=== PATIENT | male | born 1940 | race Caucasian/White ===

== ENCOUNTER 2016-07-04 17:24 | Emergency (ER) | payer MEDICARE, OTHER ==
[~2016-07-04] VITALS: Ht 180.3 cm; Wt 73.0 kg
[~2016-07-04 17:24] MED LIST: ASPI-556 PO; DOXA2TAB PO; LEVO88TA4 PO; SIMV-259 PO; TAMS0.4C32 PO; TERB250 PO
[2016-07-04 20:41] LABS: ANION GAP 7 mmol/L (8-16); CARBON DIOXIDE 29 mmol/L (22-29); CHLORIDE 102 mmol/L (98-107); CREATININE 0.93 mg/dL (0.60-1.30); GLOMERULAR FILTR. RATE CALC > 60 mL/min (>60); POTASSIUM 4.2 mmol/L (3.5-5.1); SODIUM SERUM 138 mmol/L (136-145); UREA NITROGEN, BLOOD 23 mg/dL (7-18)
[2016-07-04 20:48] LABS: ALANINE AMINOTRANSFERASE 18 U/L (12-78); ASPARTATE AMINOTRANSFERASE 15 U/L (15-37); BILIRUBIN,TOTAL 0.5 mg/dL (0.1-1.0); TOTAL PROTEIN, SERUM 7.2 g/dL (6.4-8.2)
[2016-07-04 20:51] LABS: BASOPHILS # (AUTO) 0.02 K/uL (0.00-0.20); BASOPHILS % (AUTO) 0.2 % (0.0-2.0); EOSINOPHILS # (AUTO) 0.01 K/uL (0.00-0.70); EOSINOPHILS % (AUTO) 0.11 % (1.0-6.0); HEMATOCRIT 34.9 % (41-53); HEMOGLOBIN 11.7 g/dL (13.5-17.5); MEAN CORPUSCULAR HEMOGLOBIN 30.2 pg (26.0-34.0); MEAN CORPUSCULAR HGB CONC 33.4 G/dL (31.0-37.0); MEAN CORPUSCULAR VOLUME 91 fL (80-100); MONOCYTES # (AUTO) 0.7 K/uL (0.1-1.0); NEUTROPHILS # (AUTO) 7.4 K/uL (1.8-7.7); NEUTROPHILS % (AUTO) 80.7 % (40.0-70.0); PLATELET COUNT (AUTO) 220 K/uL (150-450); RED BLOOD CELL COUNT(AUTO) 3.86 MIL/uL (4.50-5.90); RED CELL DISTRIBUTION WIDTH 15.1 % (11.5-14.5); WHITE BLOOD COUNT (AUTO) 9.1 K/uL (4.5-11.0)
[2016-07-04] MEDS ORDERED: SODIUM CHLORIDE 0.9% 1,000 ML IV ONE (22:00)
[2016-07-04 22:16] LABS: APPEARANCE,URINE CLEAR (CLEAR); GLUCOSE, URINE (UA) NEGATIVE (NEGATIVE); KETONES,URINE TRACE mg/dL (NEGATIVE); LEUKOCYTE ESTERASE ,URINE NEGATIVE (NEGATIVE); OCCULT BLOOD,URINE MODERATE (NEGATIVE); PROTEIN,URINE POS 1+ (NEGATIVE)
[2016-07-04 22:20] LABS: ADD UA MICROSCOPIC YES
[2016-07-04 22:21] LABS: RBC,URINE 26-50 /HPF (0-2); SQUAMOUS EPITHELIAL CELL,UR Rare /LPF (None Seen)
[2016-07-04] MEDS ORDERED: LEVOFLOXACIN 250 MG TABLET PO ONE (23:00)
[2016-07-05] MEDS ORDERED: IOVERSOL 350 MG/ML 100 ML VIAL ONE (00:34)
[2016-07-05 02:33] VITALS: BP 122/70
== END 2016-07-05 02:35 | disposition home or self-care (01) ==
LOC: EMS 17:32
DX: J18.9 Pneumonia, unspecified organism (principal); E78.00 Pure hypercholesterolemia, unspecified; Z79.82 Long term (current) use of aspirin
CPT/HCPCS: 36415; 71010; 71275; 80053; 81001; 83605; 84443; 84484; 85025; 85379; 93005; 96360; 99285; J7030; Q9967

== ENCOUNTER → 2016-07-14 | Outpatient (CLI) | payer MEDICARE, OTHER ==
[~2016-07-14] MED LIST changes: -SIMV-259 PO; +SIMV10 PO
== END | disposition home or self-care (01) ==
LOC: RADPV 07:46
PROVIDERS: ATTEND Legal Medicine
DX: J18.9 Pneumonia, unspecified organism (principal); J98.11 Atelectasis; I70.0 Atherosclerosis of aorta; M47.814 Spondylosis without myelopathy or radiculopathy, thoracic region
CPT/HCPCS: 71020

== ENCOUNTER → 2016-07-28 | Outpatient (CLI) | payer MEDICARE, OTHER | END | disposition home or self-care (01) | LOC: RADPV 07:29 | PROVIDERS: ATTEND Legal Medicine | DX: J18.8 Other pneumonia, unspecified organism (principal); R91.8 Other nonspecific abnormal finding of lung field; J98.11 Atelectasis; I70.0 Atherosclerosis of aorta | CPT/HCPCS: 71020 ==

== ENCOUNTER → 2016-08-02 | Outpatient (CLI) | payer MEDICARE, OTHER ==
[~2016-08-02] MED LIST changes: +SIMV-259 PO; -SIMV10 PO
== END | disposition home or self-care (01) ==
LOC: RADMN 09:17
PROVIDERS: ATTEND Legal Medicine
DX: J18.9 Pneumonia, unspecified organism (principal); I31.3 Pericardial effusion (noninflammatory); I70.0 Atherosclerosis of aorta; I25.10 Atherosclerotic heart disease of native coronary artery without angina pectoris; M47.814 Spondylosis without myelopathy or radiculopathy, thoracic region
CPT/HCPCS: 71250

== ENCOUNTER 2016-12-02 06:09 | Emergency (ER) | payer MEDICARE, OTHER ==
[~2016-12-02] VITALS: Ht 180.3 cm; Wt 72.7 kg
[~2016-12-02 06:09] MED LIST changes: +AZIT250T6 PO
[2016-12-02] MEDS ORDERED: FLAX100020 PO (06:17)
[2016-12-02] MEDS ORDERED: UBID100C10 PO (06:17)
[2016-12-02] MEDS ORDERED: CETI-290 PO (06:17)
[2016-12-02] MEDS ORDERED: MULT1CAP32 PO (06:17)
[2016-12-02] MEDS ORDERED: NIAC500T7 PO (06:17)
[2016-12-02] MEDS ORDERED: LUTE20CA PO (06:17)
[2016-12-02] MEDS ORDERED: ASPI-556 PO (06:17)
[2016-12-02 08:20] VITALS: BP 126/71
== END 2016-12-02 08:22 | disposition home or self-care (01) ==
LOC: EMS 06:11
DX: S83.91XA Sprain of unspecified site of right knee, initial encounter (principal); E03.9 Hypothyroidism, unspecified; I10 Essential (primary) hypertension; N40.0 Benign prostatic hyperplasia without lower urinary tract symptoms; E78.00 Pure hypercholesterolemia, unspecified; Z79.82 Long term (current) use of aspirin; Z85.89 Personal history of malignant neoplasm of other organs and systems; Z87.891 Personal history of nicotine dependence; X58.XXXA Exposure to other specified factors, initial encounter; Y93.39 Activity, other involving climbing, rappelling and jumping off; Y92.89 Other specified places as the place of occurrence of the external cause; Y99.9 Unspecified external cause status
CPT/HCPCS: 99284

== ENCOUNTER → 2016-12-14 | Outpatient (CLI) | payer MEDICARE, OTHER ==
[~2016-12-14] MED LIST changes: -AZIT250T6 PO; +CETI-290 PO; +FLAX100020 PO; +LUTE20CA PO; +MULT1CAP32 PO; +NIAC500T7 PO; +UBID100C10 PO
== END | disposition home or self-care (01) ==
LOC: RADPV 10:52
PROVIDERS: ATTEND Legal Medicine
DX: J98.11 Atelectasis (principal); R91.8 Other nonspecific abnormal finding of lung field; I70.0 Atherosclerosis of aorta; M47.819 Spondylosis without myelopathy or radiculopathy, site unspecified
CPT/HCPCS: 71020

== ENCOUNTER → 2017-02-07 | Outpatient (CLI) | payer MEDICARE, OTHER | END | disposition home or self-care (01) | LOC: RADPV 07:45 | PROVIDERS: ATTEND Legal Medicine | DX: J44.9 Chronic obstructive pulmonary disease, unspecified (principal); I70.0 Atherosclerosis of aorta | CPT/HCPCS: 71020 ==

== ENCOUNTER → 2017-04-06 | Outpatient (CLI) | payer MEDICARE, OTHER | END | disposition home or self-care (01) | LOC: RADPV 07:42 | PROVIDERS: ATTEND Legal Medicine | DX: J44.9 Chronic obstructive pulmonary disease, unspecified (principal) | CPT/HCPCS: 71046 ==

== ENCOUNTER 2018-11-14 07:52 | Emergency (ER) | payer MEDICARE, OTHER ==
[~2018-11-14] VITALS: Ht 182.9 cm; Wt 70.5 kg
[~2018-11-14 07:52] MED LIST changes: +BETA1TAB20 PO; -CETI-290 PO; -LUTE20CA PO; -MULT1CAP32 PO; +MULT1TAB70 PO; +MV-M1TAB38 PO; -TERB250 PO
[2018-11-14] MEDS ORDERED: LIDOCAINE 1% 10 ML VIAL INJ ONE (08:45)
[2018-11-14] MEDS ORDERED: SODIUM CHLORIDE 0.9% 250 ML IRRIG SOLUTION BOTTLE IRRIG ONE (08:45)
[2018-11-14 10:34] LABS: BASOPHILS % (AUTO) 0.3 % (0.0-2.0); EOSINOPHILS % (AUTO) 0.1 % (1.0-6.0); HEMATOCRIT 34.2 % (41-53); LYMPHOCYTES # (AUTO) 0.6 K/uL (1.0-4.8); LYMPHOCYTES % (AUTO) 8.8 % (22.0-44.0); MEAN CORPUSCULAR HEMOGLOBIN 28.5 pg (26.0-34.0); MEAN CORPUSCULAR HGB CONC 32.2 G/dL (31.0-37.0); MEAN CORPUSCULAR VOLUME 88 fL (80-100); MONOCYTES # (AUTO) 0.5 K/uL (0.1-1.0); MONOCYTES % (AUTO) 6.8 % (2.0-9.0); NEUTROPHILS # (AUTO) 5.9 K/uL (1.8-7.7); PLATELET COUNT (AUTO) 234 K/uL (150-450); RED BLOOD CELL COUNT(AUTO) 3.86 MIL/uL (4.50-5.90); RED CELL DISTRIBUTION WIDTH 16.2 % (11.5-14.5)
[2018-11-14 10:46] LABS: ANION GAP 8 mmol/L (8-16); CALCIUM, TOTAL 9.6 mg/dL (8.8-10.5); CARBON DIOXIDE 28 mmol/L (22-29); CHLORIDE 103 mmol/L (98-107); CREATININE 0.78 mg/dL (0.60-1.30); GLUCOSE,RANDOM 121 mg/dL (70-110); INR 1.1 (0.9-1.1); POTASSIUM 4.1 mmol/L (3.5-5.1); PROTHROMBIN TIME 11.3 SEC (9.4-11.6); SODIUM SERUM 139 mmol/L (136-145); UREA NITROGEN, BLOOD 19 mg/dL (7-18)
[2018-11-14 10:47] LABS: GLOMERULAR FILTR. RATE CALC > 60 mL/min (>60)
[2018-11-14 10:52] LABS: ALANINE AMINOTRANSFERASE 9 U/L (12-78); ALBUMIN 3.2 g/dL (3.4-5.0); ALKALINE PHOSPHATASE 79 U/L (46-116); ASPARTATE AMINOTRANSFERASE 16 U/L (15-37); BILIRUBIN,TOTAL 0.6 mg/dL (0.1-1.0); TOTAL PROTEIN, SERUM 7.1 g/dL (6.4-8.2)
[2018-11-14 10:56] LABS: B-TYPE NATRIURETIC PEPTIDE 195 pg/mL (0-100)
[2018-11-14] MEDS ORDERED: CeFAZolin 1 GM/DEXTROSE 50 ML IV ONE (11:30)
[2018-11-14 11:47] VITALS: BP 122/73
== END 2018-11-14 12:26 | disposition home or self-care (01) ==
LOC: EMS 07:52
DX: S02.2XXA Fracture of nasal bones, initial encounter for closed fracture (principal); S01.81XA Laceration without foreign body of other part of head, initial encounter; E78.00 Pure hypercholesterolemia, unspecified; E03.9 Hypothyroidism, unspecified; Z87.891 Personal history of nicotine dependence; Z79.82 Long term (current) use of aspirin; W01.0XXA Fall on same level from slipping, tripping and stumbling without subsequent striking against object, initial encounter; Y93.01 Activity, walking, marching and hiking; Y92.89 Other specified places as the place of occurrence of the external cause; Y99.8 Other external cause status
CPT/HCPCS: 12011; 36415; 70450; 70486; 80053; 83880; 84484; 85025; 85610; 85730; 93005; 96365; 99285; J0690; J3490

== ENCOUNTER 2019-01-09 15:13 | Inpatient (IN) | payer MEDICARE, OTHER ==
[~2019-01-09] VITALS: Ht 180.3 cm; Wt 63.5 kg
[~2019-01-09 15:13] MED LIST changes: +TAMS-13 PO; -TAMS0.4C32 PO
[2019-01-09] MEDS ORDERED: MELATONIN 5 MG TABLET JT PRN (16:45)
[2019-01-09] MEDS ORDERED: ACETAMINOPHEN 650 MG/20.3 ML SOLUTION UDCUP JT PRN (16:45)
[2019-01-09 16:47] VITALS: BP 122/71
[2019-01-09 20:26] LABS: GLUCOMETER DEV NAME(LOC) 2WR.2; GLUCOSE,POINT OF CARE 110 MG/DL (70-110)
[2019-01-09] MEDS: ALBUTEROL SULFATE 2.5 MG/0.5 ML NEB SOLUTION NEB SCH (20:56)
[2019-01-09] MEDS: IPRATROPIUM BROMIDE 0.5 MG/2.5 ML NEB SOLUTION NEB SCH (20:56)
[2019-01-09] MEDS ORDERED: BUDESONIDE 0.25 MG/2 ML NEB SOLUTION NEB SCH (21:00)
[2019-01-09] MEDS: BUDESONIDE 0.5 MG/2 ML NEB SOLUTION NEB SCH (21:00)
[2019-01-09 21:43] VITALS: BP 122/71
[2019-01-09] MEDS: MIRTAZAPINE 15 MG TABLET JT SCH (22:12)
[2019-01-09] MEDS: TAMSULOSIN HCL 0.4 MG CAPSULE JT SCH (22:12)
[2019-01-09] MEDS: ATORVASTATIN CALCIUM 10 MG TABLET JT SCH (22:12)
[2019-01-10 01:13] VITALS: BP 90/58
[2019-01-10 01:30] LABS: GLUCOMETER DEV NAME(LOC) 2WR.2; GLUCOSE,POINT OF CARE 159 MG/DL (70-110)
[2019-01-10] MEDS: LEVOTHYROXINE SODIUM 88 MCG TABLET JT SCH (06:07)
[2019-01-10 06:12] LABS: BASOPHILS % (AUTO) 1.1 % (0.0-2.0); HEMATOCRIT 32.6 % (41-53); HEMOGLOBIN 10.5 g/dL (13.5-17.5); LYMPHOCYTES # (AUTO) 0.8 K/uL (1.0-4.8); LYMPHOCYTES % (AUTO) 11.2 % (22.0-44.0); MEAN CORPUSCULAR HEMOGLOBIN 27.9 pg (26.0-34.0); MEAN CORPUSCULAR HGB CONC 32.3 G/dL (31.0-37.0); MEAN CORPUSCULAR VOLUME 86 fL (80-100); MONOCYTES # (AUTO) 0.7 K/uL (0.1-1.0); MONOCYTES % (AUTO) 10.2 % (2.0-9.0); NEUTROPHILS # (AUTO) 4.9 K/uL (1.8-7.7); NEUTROPHILS % (AUTO) 71.5 % (40.0-70.0); PLATELET COUNT (AUTO) 240 K/uL (150-450); RED BLOOD CELL COUNT(AUTO) 3.78 MIL/uL (4.50-5.90); RED CELL DISTRIBUTION WIDTH 18.7 % (11.5-14.5)
[2019-01-10 06:27] LABS: GLUCOMETER DEV NAME(LOC) 2WR.2; GLUCOSE,POINT OF CARE 125 MG/DL (70-110)
[2019-01-10 06:28] LABS: ALANINE AMINOTRANSFERASE 83 U/L (12-78); ALBUMIN 2.3 g/dL (3.4-5.0); ALKALINE PHOSPHATASE 97 U/L (46-116); ANION GAP 4 mmol/L (8-16); ASPARTATE AMINOTRANSFERASE 35 U/L (15-37); BILIRUBIN,TOTAL 0.3 mg/dL (0.1-1.0); CALCIUM, TOTAL 8.5 mg/dL (8.8-10.5); CARBON DIOXIDE 32 mmol/L (22-29); CHLORIDE 104 mmol/L (98-107); CREATININE 0.78 mg/dL (0.60-1.30); GLOMERULAR FILTR. RATE CALC > 60 mL/min (>60); GLUCOSE,RANDOM 134 mg/dL (70-110); POTASSIUM 4.5 mmol/L (3.5-5.1); SODIUM SERUM 140 mmol/L (136-145); TOTAL PROTEIN, SERUM 6.1 g/dL (6.4-8.2); UREA NITROGEN, BLOOD 32 mg/dL (7-18)
[2019-01-10] MEDS: ASPIRIN 81 MG CHEWABLE TABLET JT SCH (08:45)
[2019-01-10] MEDS: LANSOPRAZOLE 30 MG SOLUBLE TABLET JT SCH (08:45)
[2019-01-10 09:26] VITALS: BP 99/55
[2019-01-10] MEDS: IPRATROPIUM BROMIDE 0.5 MG/2.5 ML NEB SOLUTION NEB SCH ×4 (10:42→20:11)
[2019-01-10] MEDS: BUDESONIDE 0.5 MG/2 ML NEB SOLUTION NEB SCH ×2 (10:42→20:11)
[2019-01-10] MEDS: ALBUTEROL SULFATE 2.5 MG/0.5 ML NEB SOLUTION NEB SCH ×4 (10:42→20:11)
[2019-01-10 12:46] LABS: GLUCOMETER DEV NAME(LOC) 2WR.2; GLUCOSE,POINT OF CARE 131 MG/DL (70-110)
[2019-01-10 16:36] VITALS: BP 144/85
[2019-01-10] MEDS: ATORVASTATIN CALCIUM 10 MG TABLET JT SCH (20:24)
[2019-01-10] MEDS: MIRTAZAPINE 15 MG TABLET JT SCH (20:24)
[2019-01-10] MEDS: TAMSULOSIN HCL 0.4 MG CAPSULE JT SCH (20:24)
[2019-01-11] VITALS (7 sets, daily range): BP systolic 77–118; BP diastolic 37–70
[2019-01-11 00:31] LABS: GLUCOMETER DEV NAME(LOC) 2WR.1B; GLUCOSE,POINT OF CARE 151 MG/DL (70-110)
[2019-01-11 05:32] LABS: GLUCOMETER DEV NAME(LOC) 2WR.2; GLUCOSE,POINT OF CARE 156 MG/DL (70-110)
[2019-01-11] MEDS: LEVOTHYROXINE SODIUM 88 MCG TABLET JT SCH (06:10)
[2019-01-11 06:31] LABS: GLUCOMETER DEV NAME(LOC) 2WR.1B; GLUCOSE,POINT OF CARE 143 MG/DL (70-110)
[2019-01-11] MEDS: LANSOPRAZOLE 30 MG SOLUBLE TABLET JT SCH (09:21)
[2019-01-11] MEDS: ASPIRIN 81 MG CHEWABLE TABLET JT SCH (09:29)
[2019-01-11] MEDS: BUDESONIDE 0.5 MG/2 ML NEB SOLUTION NEB SCH ×2 (09:31→20:20)
[2019-01-11] MEDS: ALBUTEROL SULFATE 2.5 MG/0.5 ML NEB SOLUTION NEB SCH ×4 (09:31→20:20)
[2019-01-11] MEDS: IPRATROPIUM BROMIDE 0.5 MG/2.5 ML NEB SOLUTION NEB SCH ×4 (09:32→20:20)
[2019-01-11] MEDS ORDERED: DEXTROSE 50%-WATER 25 GM/50 ML SYRINGE IVP PRN (10:15)
[2019-01-11 18:26] LABS: GLUCOMETER DEV NAME(LOC) 2WR.2; GLUCOSE,POINT OF CARE 148 MG/DL (70-110)
[2019-01-11] MEDS: INSULIN REGULAR, HUMAN 100 UNITS/ML SQ PRN (19:24)
[2019-01-11] MEDS: MIRTAZAPINE 15 MG TABLET JT SCH (20:32)
[2019-01-11] MEDS: ATORVASTATIN CALCIUM 10 MG TABLET JT SCH (20:32)
[2019-01-11 21:26] LABS: GLUCOMETER DEV NAME(LOC) 2WR.2; GLUCOSE,POINT OF CARE 118 MG/DL (70-110)
[2019-01-12] VITALS (7 sets, daily range): BP systolic 79–102; BP diastolic 42–58
[2019-01-12] MEDS: LEVOTHYROXINE SODIUM 88 MCG TABLET JT SCH (05:34)
[2019-01-12] MEDS: INSULIN REGULAR, HUMAN 100 UNITS/ML SQ PRN (05:51)
[2019-01-12 06:07] LABS: GLUCOMETER DEV NAME(LOC) 2WR.1B; GLUCOSE,POINT OF CARE 127 MG/DL (70-110)
[2019-01-12 06:07] LABS: GLUCOMETER DEV NAME(LOC) 2WR.2; GLUCOSE,POINT OF CARE 142 MG/DL (70-110)
[2019-01-12] MEDS: LANSOPRAZOLE 30 MG SOLUBLE TABLET JT SCH (08:02)
[2019-01-12] MEDS: ASPIRIN 81 MG CHEWABLE TABLET JT SCH (08:02)
[2019-01-12] MEDS: ALBUTEROL SULFATE 2.5 MG/0.5 ML NEB SOLUTION NEB SCH ×4 (09:30→21:16)
[2019-01-12] MEDS: IPRATROPIUM BROMIDE 0.5 MG/2.5 ML NEB SOLUTION NEB SCH ×4 (09:30→21:17)
[2019-01-12] MEDS: BUDESONIDE 0.5 MG/2 ML NEB SOLUTION NEB SCH ×2 (09:30→21:17)
[2019-01-12 12:36] LABS: GLUCOMETER DEV NAME(LOC) 2WR.2; GLUCOSE,POINT OF CARE 95 MG/DL (70-110)
[2019-01-12] MEDS ORDERED: MAGNESIUM HYDROXIDE SUSPENSION 30 ML UDCUP PO PRN (14:00)
[2019-01-12 17:26] LABS: GLUCOMETER DEV NAME(LOC) 2WR.2; GLUCOSE,POINT OF CARE 125 MG/DL (70-110)
[2019-01-12] MEDS: MethylPREDNISolone SOD SUCC 40 MG/ML VIAL IVP SCH (19:29)
[2019-01-12] MEDS: OXYGEN THERAPY IH SCH (21:18)
[2019-01-12] MEDS: SENNA 187 MG TABLET PO SCH (21:28)
[2019-01-12] MEDS: DOCUSATE SODIUM 250 MG CAPSULE PO SCH (21:28)
[2019-01-12] MEDS: ATORVASTATIN CALCIUM 10 MG TABLET JT SCH (21:30)
[2019-01-12] MEDS: MIRTAZAPINE 15 MG TABLET JT SCH (21:30)
[2019-01-13] VITALS: BP 116/70
[2019-01-13] MEDS: 0.9% SODIUM CHLORIDE 10 ML SYRINGE IVP SCH ×4 (00:08→23:42)
[2019-01-13] MEDS: MethylPREDNISolone SOD SUCC 40 MG/ML VIAL IVP SCH ×4 (00:08→23:43)
[2019-01-13] MEDS: LEVOTHYROXINE SODIUM 88 MCG TABLET JT SCH (05:38)
[2019-01-13] MEDS: INSULIN REGULAR, HUMAN 100 UNITS/ML SQ PRN ×2 (05:56→18:04)
[2019-01-13 05:57] LABS: GLUCOMETER DEV NAME(LOC) 2WR.2; GLUCOSE,POINT OF CARE 195 MG/DL (70-110)
[2019-01-13 07:05] VITALS: BP 106/63
[2019-01-13] MEDS: OXYGEN THERAPY IH SCH ×2 (07:56→20:00)
[2019-01-13] MEDS: LANSOPRAZOLE 30 MG SOLUBLE TABLET JT SCH (07:56)
[2019-01-13] MEDS: ASPIRIN 81 MG CHEWABLE TABLET JT SCH (07:57)
[2019-01-13] MEDS: DOCUSATE SODIUM 250 MG CAPSULE PO SCH ×2 (07:57→20:44)
[2019-01-13] MEDS: IPRATROPIUM BROMIDE 0.5 MG/2.5 ML NEB SOLUTION NEB SCH ×4 (09:14→20:01)
[2019-01-13] MEDS: ALBUTEROL SULFATE 2.5 MG/0.5 ML NEB SOLUTION NEB SCH ×4 (09:14→20:00)
[2019-01-13] MEDS: BUDESONIDE 0.5 MG/2 ML NEB SOLUTION NEB SCH ×2 (09:14→20:00)
[2019-01-13 15:55] VITALS: BP 88/55
[2019-01-13 17:01] VITALS: BP 81/46
[2019-01-13 17:52] LABS: GLUCOMETER DEV NAME(LOC) 2WR.2; GLUCOSE,POINT OF CARE 176 MG/DL (70-110)
[2019-01-13 20:42] VITALS: BP 91/52
[2019-01-13] MEDS: MIRTAZAPINE 15 MG TABLET JT SCH (20:44)
[2019-01-13] MEDS: SENNA 187 MG TABLET PO SCH (20:44)
[2019-01-13] MEDS: ATORVASTATIN CALCIUM 10 MG TABLET JT SCH (20:44)
[2019-01-14] VITALS: BP 99/54
[2019-01-14] MEDS: LEVOTHYROXINE SODIUM 88 MCG TABLET JT SCH (05:34)
[2019-01-14] MEDS: INSULIN REGULAR, HUMAN 100 UNITS/ML SQ PRN ×2 (05:48→18:07)
[2019-01-14 07:30] VITALS: BP 105/58
[2019-01-14] MEDS: ASPIRIN 81 MG CHEWABLE TABLET JT SCH (08:06)
[2019-01-14] MEDS: LANSOPRAZOLE 30 MG SOLUBLE TABLET JT SCH (08:06)
[2019-01-14] MEDS: DOCUSATE SODIUM 250 MG CAPSULE PO SCH (08:06)
[2019-01-14] MEDS: OXYGEN THERAPY IH SCH (08:07)
[2019-01-14] MEDS: 0.9% SODIUM CHLORIDE 10 ML SYRINGE IVP SCH ×2 (08:07→16:47)
[2019-01-14] MEDS: MethylPREDNISolone SOD SUCC 40 MG/ML VIAL IVP SCH ×2 (08:07→16:47)
[2019-01-14] MEDS: BUDESONIDE 0.5 MG/2 ML NEB SOLUTION NEB SCH (09:00)
[2019-01-14] MEDS: ALBUTEROL SULFATE 2.5 MG/0.5 ML NEB SOLUTION NEB SCH ×3 (09:00→16:03)
[2019-01-14] MEDS: IPRATROPIUM BROMIDE 0.5 MG/2.5 ML NEB SOLUTION NEB SCH ×3 (09:00→16:03)
[2019-01-14] MEDS ORDERED: ALBUMIN HUMAN 25%-25GM/100ML 100 ML IV SCH (16:00)
[2019-01-14] MEDS ORDERED: MIDODRINE HCL 2.5 MG TABLET PO SCH ×2 (17:00→21:00)
[2019-01-14] MEDS ORDERED: SODIUM CHLORIDE 0.9% 250 ML IV ONE (17:07)
[2019-01-14 18:07] LABS: GLUCOMETER DEV NAME(LOC) 2WR.1B; GLUCOSE,POINT OF CARE 179 MG/DL (70-110)
[2019-01-14 18:16] LABS: GLUCOMETER DEV NAME(LOC) 2WR.2; GLUCOSE,POINT OF CARE 164 MG/DL (70-110)
[2019-01-14] MEDS ORDERED: MIRTAZAPINE 15 MG TABLET JT SCH (21:00)
[2019-01-15 14:07] LABS: GLUCOMETER DEV NAME(LOC) 5N.2; GLUCOSE,POINT OF CARE 168 MG/DL (70-110)
[2019-01-15 14:07] LABS: GLUCOMETER DEV NAME(LOC) 5N.2; GLUCOSE,POINT OF CARE 172 MG/DL (70-110)
== END 2019-01-14 19:00 | disposition short-term general hospital (02) | DRG 193 ==
LOC: 2WR 15:30
PROVIDERS: ADMIT Physical Medicine & Rehabilitation; ATTEND Physical Medicine & Rehabilitation
DX: J18.9 Pneumonia, unspecified organism (principal); J96.01 Acute respiratory failure with hypoxia; J44.0 Chronic obstructive pulmonary disease with (acute) lower respiratory infection; J98.19 Other pulmonary collapse; I10 Essential (primary) hypertension; E78.5 Hyperlipidemia, unspecified; E03.9 Hypothyroidism, unspecified; F32.9 Major depressive disorder, single episode, unspecified; N40.0 Benign prostatic hyperplasia without lower urinary tract symptoms; F12.90 Cannabis use, unspecified, uncomplicated; R13.10 Dysphagia, unspecified; I48.91 Unspecified atrial fibrillation; R26.9 Unspecified abnormalities of gait and mobility; K59.00 Constipation, unspecified; G47.00 Insomnia, unspecified; I95.9 Hypotension, unspecified; Z87.891 Personal history of nicotine dependence; Z79.82 Long term (current) use of aspirin; Z79.899 Other long term (current) drug therapy; Z92.3 Personal history of irradiation
CPT/HCPCS: 71260; 74018; 87081; 93970; 94640; 94667; 97110; 97116; 97163; 97167; 97530; 97535; 99366; J2920; J7050; P9046

== ENCOUNTER 2019-01-14 19:10 | Inpatient (IN) | payer MEDICARE, OTHER ==
[~2019-01-14] VITALS: Ht 180.3 cm; Wt 60.9 kg
[2019-01-14 20:00] VITALS: BP 111/66
[2019-01-15 00:15] VITALS: BP 134/75
[2019-01-15] MEDS ORDERED: INFLUENZA VIRUS VACCINE QVS 2019-20 (3YR+)/PF 60 MCG/0.5 ML SYRINGE IM ONE (03:45)
[2019-01-15] MEDS ORDERED: PNEUMOCOCCAL VACCINE POLYVALENT 0.5 ML VIAL [PPSV23] IM ONE (03:45)
[2019-01-15 05:10] VITALS: BP 100/59
[2019-01-15] MEDS ORDERED: DEXTROSE 50%-WATER 25 GM/50 ML SYRINGE IVP PRN (07:00)
[2019-01-15 07:46] VITALS: BP 97/56
[2019-01-15] MEDS: DOCUSATE SODIUM 100 MG/10 ML LIQUID UDCUP JT SCH ×2 (08:20→21:48)
[2019-01-15] MEDS: ASPIRIN 81 MG CHEWABLE TABLET JT SCH (08:20)
[2019-01-15] MEDS: LANSOPRAZOLE 30 MG SOLUBLE TABLET JT SCH (08:21)
[2019-01-15] MEDS: MethylPREDNISolone SOD SUCC 40 MG/ML VIAL IVP SCH ×3 (08:21→23:46)
[2019-01-15] MEDS: 0.9% SODIUM CHLORIDE 10 ML SYRINGE IVP SCH ×3 (08:21→23:47)
[2019-01-15] MEDS: LEVOTHYROXINE SODIUM 88 MCG TABLET JT SCH (08:21)
[2019-01-15] MEDS: MIDODRINE HCL 2.5 MG TABLET JT SCH ×2 (08:21→21:48)
[2019-01-15] MEDS: IPRATROPIUM BROMIDE 0.5 MG/2.5 ML NEB SOLUTION NEB SCH ×4 (08:54→20:55)
[2019-01-15] MEDS: ALBUTEROL SULFATE 2.5 MG/0.5 ML NEB SOLUTION NEB PRN ×4 (08:54→20:55)
[2019-01-15] MEDS: BUDESONIDE 0.5 MG/2 ML NEB SOLUTION NEB SCH ×2 (08:54→20:55)
[2019-01-15] MEDS ORDERED: ACETAMINOPHEN 650 MG/20.3 ML SOLUTION UDCUP JT PRN (09:00)
[2019-01-15] MEDS ORDERED: MAGNESIUM HYDROXIDE SUSPENSION 30 ML UDCUP JT PRN (09:00)
[2019-01-15 11:14] VITALS: BP 106/57
[2019-01-15] MEDS: ALBUMIN HUMAN 25%-25GM/100ML 100 ML IV SCH ×2 (11:30→17:01)
[2019-01-15] MEDS: ACETYLCYSTEINE 10% 100 MG/ML 4 ML NEB SOLUTION NEB SCH ×3 (14:13→20:55)
[2019-01-15 15:30] VITALS: BP 99/54
[2019-01-15 20:12] VITALS: BP 105/59
[2019-01-15] MEDS ORDERED: SENNA 218 MG/5 ML SYRUP ORAL.SYG JT PRN (21:00)
[2019-01-15] MEDS ORDERED: MELATONIN 5 MG TABLET JT PRN (21:00)
[2019-01-15] MEDS: ATORVASTATIN CALCIUM 10 MG TABLET JT SCH (21:49)
[2019-01-15 23:33] LABS: GLUCOMETER DEV NAME(LOC) 5N.2; GLUCOSE,POINT OF CARE 159 MG/DL (70-110)
[2019-01-15] MEDS: MIRTAZAPINE 15 MG TABLET JT SCH (23:40)
[2019-01-16] VITALS (7 sets, daily range): BP systolic 112–135; BP diastolic 60–70
[2019-01-16] MEDS: ALBUMIN HUMAN 25%-25GM/100ML 100 ML IV SCH ×3 (00:13→16:42)
[2019-01-16] MEDS: LEVOTHYROXINE SODIUM 88 MCG TABLET JT SCH (05:30)
[2019-01-16] MEDS: INSULIN REGULAR, HUMAN 100 UNITS/ML SQ PRN ×2 (06:18→18:35)
[2019-01-16 07:01] LABS: EOSINOPHILS % (AUTO) 0 % (1.0-6.0); HEMATOCRIT 30.1 % (41-53); HEMOGLOBIN 10.1 g/dL (13.5-17.5); LYMPHOCYTES # (AUTO) 0.2 K/uL (1.0-4.8); LYMPHOCYTES % (AUTO) 3.2 % (22.0-44.0); MEAN CORPUSCULAR HEMOGLOBIN 29.1 pg (26.0-34.0); MEAN CORPUSCULAR HGB CONC 33.5 G/dL (31.0-37.0); MEAN CORPUSCULAR VOLUME 87 fL (80-100); MONOCYTES # (AUTO) 0.2 K/uL (0.1-1.0); MONOCYTES % (AUTO) 4.5 % (2.0-9.0); NEUTROPHILS # (AUTO) 4.8 K/uL (1.8-7.7); PLATELET COUNT (AUTO) 210 K/uL (150-450); RED BLOOD CELL COUNT(AUTO) 3.46 MIL/uL (4.50-5.90); RED CELL DISTRIBUTION WIDTH 19.1 % (11.5-14.5)
[2019-01-16 07:12] LABS: NEUTROPHILS % (AUTO) 92.3 % (40.0-70.0)
[2019-01-16 07:13] LABS: HEMOGLOBIN A1C 6.8 % (4.5-6.2)
[2019-01-16 07:17] LABS: B-TYPE NATRIURETIC PEPTIDE 272 pg/mL (0-100)
[2019-01-16 07:25] LABS: ANION GAP 4 mmol/L (8-16); CALCIUM, TOTAL 8.9 mg/dL (8.8-10.5); CARBON DIOXIDE 31 mmol/L (22-29); CHLORIDE 102 mmol/L (98-107); CHOL/HDL RATIO 2.3 (4.2-7.3); CHOLESTEROL 89 mg/dL (131-200); CREATINE KINASE, TOTAL ONLY 16 U/L (39-308); CREATININE 0.72 mg/dL (0.60-1.30); FREE T4 (FREE THYROXINE) 0.95 ng/dL (0.76-1.46); GLUCOSE,RANDOM 201 mg/dL (70-110); HDL CHOLESTEROL 39 mg/dL (40-60); LDL CHOL (CALC.) 44 mg/dL (0-130); POTASSIUM 4.2 mmol/L (3.5-5.1); SODIUM SERUM 137 mmol/L (136-145); THYROID STIMULATING HORMONE 0.73 uIU/mL (0.36-3.74); TRIGLYCERIDES 29 mg/dL (15-150); UREA NITROGEN, BLOOD 30 mg/dL (7-18)
[2019-01-16 07:27] LABS: GLOMERULAR FILTR. RATE CALC > 60 mL/min (>60)
[2019-01-16] MEDS: BUDESONIDE 0.5 MG/2 ML NEB SOLUTION NEB SCH ×2 (08:26→21:16)
[2019-01-16] MEDS: ALBUTEROL SULFATE 2.5 MG/0.5 ML NEB SOLUTION NEB PRN ×3 (08:26→16:44)
[2019-01-16] MEDS: ACETYLCYSTEINE 10% 100 MG/ML 4 ML NEB SOLUTION NEB SCH ×2 (08:27→13:38)
[2019-01-16] MEDS: IPRATROPIUM BROMIDE 0.5 MG/2.5 ML NEB SOLUTION NEB SCH ×4 (08:28→21:16)
[2019-01-16] MEDS: ASPIRIN 81 MG CHEWABLE TABLET JT SCH (09:33)
[2019-01-16] MEDS: MethylPREDNISolone SOD SUCC 40 MG/ML VIAL IVP SCH ×2 (09:33→16:42)
[2019-01-16] MEDS: LANSOPRAZOLE 30 MG SOLUBLE TABLET JT SCH (09:34)
[2019-01-16] MEDS: MIDODRINE HCL 2.5 MG TABLET JT SCH ×2 (09:34→21:21)
[2019-01-16] MEDS: DOCUSATE SODIUM 100 MG/10 ML LIQUID UDCUP JT SCH ×2 (09:34→21:21)
[2019-01-16] MEDS: 0.9% SODIUM CHLORIDE 10 ML SYRINGE IVP SCH ×2 (09:40→16:34)
[2019-01-16 19:06] LABS: GLUCOMETER DEV NAME(LOC) 5N.2; GLUCOSE,POINT OF CARE 197 MG/DL (70-110)
[2019-01-16] MEDS: MIRTAZAPINE 15 MG TABLET JT SCH (21:21)
[2019-01-16] MEDS: ATORVASTATIN CALCIUM 10 MG TABLET JT SCH (21:21)
[2019-01-17] MEDS ORDERED: SODIUM CHLORIDE 0.9% 100 ML ONE (00:26)
[2019-01-17] MEDS: ALBUMIN HUMAN 25%-25GM/100ML 100 ML IV SCH ×3 (00:54→16:38)
[2019-01-17] MEDS: MethylPREDNISolone SOD SUCC 40 MG/ML VIAL IVP SCH ×3 (00:54→16:37)
[2019-01-17] MEDS: 0.9% SODIUM CHLORIDE 10 ML SYRINGE IVP SCH ×3 (01:02→16:36)
[2019-01-17 04:45] VITALS: BP 130/64
[2019-01-17 06:05] LABS: GLUCOMETER DEV NAME(LOC) 5S.2A; GLUCOSE,POINT OF CARE 198 MG/DL (70-110)
[2019-01-17] MEDS: INSULIN REGULAR, HUMAN 100 UNITS/ML SQ PRN (06:56)
[2019-01-17 07:34] VITALS: BP 117/53
[2019-01-17] MEDS: IPRATROPIUM BROMIDE 0.5 MG/2.5 ML NEB SOLUTION NEB SCH ×4 (08:03→21:10)
[2019-01-17] MEDS: BUDESONIDE 0.5 MG/2 ML NEB SOLUTION NEB SCH ×2 (08:03→21:10)
[2019-01-17] MEDS: MIDODRINE HCL 2.5 MG TABLET JT SCH ×2 (08:54→20:53)
[2019-01-17] MEDS: LANSOPRAZOLE 30 MG SOLUBLE TABLET JT SCH (08:54)
[2019-01-17] MEDS: ASPIRIN 81 MG CHEWABLE TABLET JT SCH (08:55)
[2019-01-17] MEDS: DOCUSATE SODIUM 100 MG/10 ML LIQUID UDCUP JT SCH ×2 (08:55→20:54)
[2019-01-17 10:58] VITALS: BP 131/61
[2019-01-17] MEDS: LEVOTHYROXINE SODIUM 88 MCG TABLET JT SCH (12:14)
[2019-01-17 15:03] VITALS: BP 145/78
[2019-01-17 19:28] LABS: GLUCOMETER DEV NAME(LOC) 5N.1; GLUCOSE,POINT OF CARE 161 MG/DL (70-110)
[2019-01-17 19:34] VITALS: BP 133/69
[2019-01-17] MEDS: MIRTAZAPINE 15 MG TABLET JT SCH (20:53)
[2019-01-17] MEDS: ATORVASTATIN CALCIUM 10 MG TABLET JT SCH (20:53)
[2019-01-17] MEDS: ALBUTEROL SULFATE 2.5 MG/0.5 ML NEB SOLUTION NEB PRN (21:10)
[2019-01-17 23:05] LABS: GLUCOMETER DEV NAME(LOC) 5N.2; GLUCOSE,POINT OF CARE 164 MG/DL (70-110)
[2019-01-18] MEDS ORDERED: SODIUM CHLORIDE 0.9% 100 ML ONE (00:13)
[2019-01-18 00:14] VITALS: BP 125/65
[2019-01-18] MEDS: MethylPREDNISolone SOD SUCC 40 MG/ML VIAL IVP SCH ×2 (00:15→08:59)
[2019-01-18] MEDS: ALBUMIN HUMAN 25%-25GM/100ML 100 ML IV SCH ×2 (00:15→09:12)
[2019-01-18] MEDS: INSULIN REGULAR, HUMAN 100 UNITS/ML SQ PRN (06:02)
[2019-01-18] MEDS ORDERED: ASPI81TA39 JT (06:45)
[2019-01-18] MEDS ORDERED: ATOR10TA69 JT (06:46)
[2019-01-18] MEDS ORDERED: BUDE0.5A NEB (06:49)
[2019-01-18] MEDS ORDERED: DSSL JT (06:50)
[2019-01-18] MEDS ORDERED: IPRNEB NEB (06:52)
[2019-01-18] MEDS ORDERED: LANS15CA17 JT (06:54)
[2019-01-18] MEDS ORDERED: LEVO25TA9 JT (06:55)
[2019-01-18] MEDS ORDERED: MIDO2.5T JT (06:56)
[2019-01-18] MEDS ORDERED: MIRT15TA6 JT (06:57)
[2019-01-18] MEDS ORDERED: ACET-3207 JT (06:58)
[2019-01-18 07:44] VITALS: BP 117/69
[2019-01-18] MEDS: IPRATROPIUM BROMIDE 0.5 MG/2.5 ML NEB SOLUTION NEB SCH ×3 (08:48→16:00)
[2019-01-18] MEDS: ALBUTEROL SULFATE 2.5 MG/0.5 ML NEB SOLUTION NEB PRN ×2 (08:48→13:55)
[2019-01-18] MEDS: BUDESONIDE 0.5 MG/2 ML NEB SOLUTION NEB SCH (08:48)
[2019-01-18] MEDS: LANSOPRAZOLE 30 MG SOLUBLE TABLET JT SCH (08:59)
[2019-01-18] MEDS: MIDODRINE HCL 2.5 MG TABLET JT SCH (08:59)
[2019-01-18] MEDS: ASPIRIN 81 MG CHEWABLE TABLET JT SCH (08:59)
[2019-01-18] MEDS: DOCUSATE SODIUM 100 MG/10 ML LIQUID UDCUP JT SCH (09:00)
[2019-01-18] MEDS: 0.9% SODIUM CHLORIDE 10 ML SYRINGE IVP SCH (09:22)
[2019-01-18] MEDS: LEVOTHYROXINE SODIUM 88 MCG TABLET JT SCH (11:03)
[2019-01-18 11:34] VITALS: BP 130/68
[2019-01-18] MEDS ORDERED: MethylPREDNISolone SOD SUCC 40 MG/ML VIAL IVP SCH (21:00)
[2019-01-19 01:04] LABS: GLUCOMETER DEV NAME(LOC) 5S.2A; GLUCOSE,POINT OF CARE 237 MG/DL (70-110)
== END 2019-01-18 16:42 | DRG 190 ==
LOC: 5S 19:10
PROVIDERS: ADMIT Internal Medicine Geriatric Medicine; ATTEND Internal Medicine Geriatric Medicine
DX: J44.1 Chronic obstructive pulmonary disease with (acute) exacerbation (principal); J96.91 Respiratory failure, unspecified with hypoxia; E43 Unspecified severe protein-calorie malnutrition; J90 Pleural effusion, not elsewhere classified; I31.3 Pericardial effusion (noninflammatory); Z68.1 Body mass index [BMI] 19.9 or less, adult; I95.9 Hypotension, unspecified; I48.91 Unspecified atrial fibrillation; R62.7 Adult failure to thrive; R91.8 Other nonspecific abnormal finding of lung field; R26.9 Unspecified abnormalities of gait and mobility; E03.9 Hypothyroidism, unspecified; D64.9 Anemia, unspecified; E78.5 Hyperlipidemia, unspecified; F12.90 Cannabis use, unspecified, uncomplicated; I10 Essential (primary) hypertension; N40.0 Benign prostatic hyperplasia without lower urinary tract symptoms; R73.03 Prediabetes; Z66 Do not resuscitate; Z87.891 Personal history of nicotine dependence; Z93.1 Gastrostomy status; Z23 Encounter for immunization; Z79.899 Other long term (current) drug therapy
CPT/HCPCS: 83036; 83735; 84439; 84443; 90686; 90732; 93308; 94640; 94667; 97116; 97162; 97530; J2920; J7050; P9046

== ENCOUNTER 2019-05-16 09:05 | Emergency (ER) | payer MEDICARE, OTHER ==
[~2019-05-16] VITALS: Ht 175.3 cm; Wt 63.6 kg
[~2019-05-16 09:05] MED LIST changes: +ACET-3207 JT; +ASPI81TA39 JT; +ATOR10TA69 JT; +BUDE0.5A NEB; +DSSL JT; +IPRNEB NEB; +LANS15CA17 JT; +LEVO25TA9 JT; +MIDO2.5T JT; +MIRT15TA6 JT
[2019-05-16] MEDS ORDERED: DIATRIZOATE MEGLU/SOD 660/100 MG/ML 120 ML BOTTLE ONE (13:10)
[2019-05-16 14:20] VITALS: BP 105/63
[2019-05-17] MEDS ORDERED: LEVO88TA4 JT (16:48)
== END 2019-05-16 14:55 | disposition home or self-care (01) ==
LOC: EMS 09:06
DX: K94.23 Gastrostomy malfunction (principal); E78.00 Pure hypercholesterolemia, unspecified; E03.9 Hypothyroidism, unspecified; J44.9 Chronic obstructive pulmonary disease, unspecified; Z98.890 Other specified postprocedural states; Z79.82 Long term (current) use of aspirin; Z79.899 Other long term (current) drug therapy; Y73.2 Prosthetic and other implants, materials and accessory gastroenterology and urology devices associated with adverse incidents
CPT/HCPCS: 49450; 99284; Q9963

== ENCOUNTER 2019-05-17 15:55 | Inpatient (IN) | payer MEDICARE, OTHER ==
[~2019-05-17] VITALS: Ht 170.2 cm; Wt 67.8 kg
[~2019-05-17 15:55] MED LIST changes: -ACET-3207 JT; -ASPI-556 PO; -ATOR10TA69 JT; -BETA1TAB20 PO; -BUDE0.5A NEB; -DOXA2TAB PO; -DSSL JT; -FLAX100020 PO; -LANS15CA17 JT; -LEVO88TA4 PO; -MIDO2.5T JT; -MIRT15TA6 JT; -MV-M1TAB38 PO; -NIAC500T7 PO; -SIMV-259 PO; -TAMS-13 PO; -UBID100C10 PO
[2019-05-17] MEDS ORDERED: DIATRIZOATE MEGLU/SOD 660/100 MG/ML 120 ML BOTTLE PO ONE (16:45)
[2019-05-17] MEDS ORDERED: LEVO88TA4 JT (16:48)
[2019-05-17] MEDS ORDERED: NAPROXEN 250 MG TABLET GT ONE (17:00)
[2019-05-17 18:37] LABS: BASOPHILS % (AUTO) 0.8 % (0.0-2.0); EOSINOPHILS % (AUTO) 0.1 % (1.0-6.0); HEMATOCRIT 32.3 % (41-53); HEMOGLOBIN 10.4 g/dL (13.5-17.5); LYMPHOCYTES # (AUTO) 0.4 K/uL (1.0-4.8); LYMPHOCYTES % (AUTO) 2.8 % (22.0-44.0); MEAN CORPUSCULAR HEMOGLOBIN 27.3 pg (26.0-34.0); MEAN CORPUSCULAR HGB CONC 32.2 G/dL (31.0-37.0); MEAN CORPUSCULAR VOLUME 85 fL (80-100); MONOCYTES # (AUTO) 0.5 K/uL (0.1-1.0); MONOCYTES % (AUTO) 3.9 % (2.0-9.0); NEUTROPHILS # (AUTO) 12.3 K/uL (1.8-7.7); PLATELET COUNT (AUTO) 389 K/uL (150-450); RED BLOOD CELL COUNT(AUTO) 3.81 MIL/uL (4.50-5.90); RED CELL DISTRIBUTION WIDTH 17.9 % (11.5-14.5)
[2019-05-17 18:39] LABS: NEUTROPHILS % (AUTO) 92.4 % (40.0-70.0)
[2019-05-17 18:46] LABS: ANION GAP 6 mmol/L (8-16); CALCIUM, TOTAL 9.8 mg/dL (8.8-10.5); CARBON DIOXIDE 30 mmol/L (22-29); CHLORIDE 102 mmol/L (98-107); CREATININE 1.06 mg/dL (0.60-1.30); GLUCOSE,RANDOM 157 mg/dL (70-110); POTASSIUM 4.8 mmol/L (3.5-5.1); SODIUM SERUM 138 mmol/L (136-145); UREA NITROGEN, BLOOD 60 mg/dL (7-18)
[2019-05-17 18:47] LABS: GLOMERULAR FILTR. RATE CALC > 60 mL/min (>60)
[2019-05-17 18:52] LABS: ALANINE AMINOTRANSFERASE 21 U/L (12-78); ALBUMIN 1.7 g/dL (3.4-5.0); ALKALINE PHOSPHATASE 122 U/L (46-116); ASPARTATE AMINOTRANSFERASE 28 U/L (15-37); BILIRUBIN,TOTAL 0.3 mg/dL (0.1-1.0); TOTAL PROTEIN, SERUM 7.5 g/dL (6.4-8.2)
[2019-05-17] MEDS ORDERED: SODIUM CHLORIDE 0.9% 1,500 ML IV ONE (19:00)
[2019-05-17] MEDS ORDERED: SODIUM CHLORIDE 0.9% 100 ML ONE (19:20)
[2019-05-17] MEDS ORDERED: IOVERSOL 350 MG/ML 100 ML VIAL ONE (19:21)
[2019-05-17] MEDS ORDERED: CEFEPIME HCL 1 GM in DEXTROSE 5%-WATER 50 ML IV ONE (19:30)
[2019-05-17] MEDS ORDERED: VANCOMYCIN HCL 1 GM/D5% WATER 200 ML IV ONE (19:30)
[2019-05-17 20:05] LABS: LACTIC ACID 2.3 mmol/L (0.4-2.0)
[2019-05-17 20:27] LABS: INFLUENZA TYPE A NEGATIVE FOR TYPE A (NEGATIVE); INFLUENZA TYPE B NEGATIVE FOR TYPE B (NEGATIVE)
[2019-05-17] MEDS ORDERED: SODIUM CHLORIDE 0.9% 1,000 ML IV ONE (20:45)
[2019-05-17] MEDS ORDERED: ONDANSETRON HCL 4 MG/2 ML VIAL IVP PRN (20:45)
[2019-05-17] MEDS ORDERED: MORPHINE SULFATE 2 MG/ML SYRINGE IVP PRN (20:45)
[2019-05-17] MEDS ORDERED: ACETAMINOPHEN 325 MG TABLET PO PRN (20:45)
[2019-05-17] MEDS ORDERED: 0.9% SODIUM CHLORIDE 10 ML SYRINGE IVP PRN (20:45)
[2019-05-17] MEDS ORDERED: IPRATROPIUM BROMIDE 0.5 MG/2.5 ML NEB SOLUTION NEB ONE (20:45)
[2019-05-17 20:47] LABS: ABG A-A DIFF O2 173.3 mmHg (10-20.0); ABG BASE EXCESS 0.3 mmol/L (-2.0-3.0); ABG CARBOXYHEMOGLOBIN 0.3 % (0.0-1.5); ABG METHEMOGLOBIN 0.3 % (0.0-1.5); ABG OXYGEN CONTENT 12.9 mL/dL (15.0-23.0); ABG OXYGEN SATURATION 94.7 % (95.0-98.0); ABG OXYHEMOGLOBIN 94.1 % (94.0-100.0); ABG PCO2 34 mmHg (35-45); ABG PH 7.469 (7.35-7.450); ABG TOTAL HEMOGLOBIN 9.7 G/dL (12.0-18.0); PO2, ARTERIAL BG 73.2 mmHg (71.0-79.0); SOURCE, BLOOD GAS ARTERIAL; TEMPERATURE, FAHRENHEIT, BG 98.3 FAHREN (96.0-98.6)
[2019-05-17 20:48] LABS: O2 DEVICE,BLOOD GAS CANNULA (ROOM AIR); SITE, BLOOD GAS RT RADIAL
[2019-05-17] MEDS: ALBUTEROL SULFATE 2.5 MG/0.5 ML NEB SOLUTION NEB ONE ×2 (21:20→21:29)
[2019-05-17] MEDS ORDERED: LEVALBUTEROL HCL 1.25 MG/0.5 ML NEB SOLUTION NEB ONE (21:30)
[2019-05-17 23:02] VITALS: BP 91/62
[2019-05-18 04:04] VITALS: BP 113/46
[2019-05-18 07:24] VITALS: BP 111/65
[2019-05-18 07:46] LABS: BASOPHILS % (AUTO) 0.1 % (0.0-2.0); EOSINOPHILS % (AUTO) 0.1 % (1.0-6.0); HEMATOCRIT 28.8 % (41-53); HEMOGLOBIN 9.3 g/dL (13.5-17.5); LYMPHOCYTES # (AUTO) 0.6 K/uL (1.0-4.8); LYMPHOCYTES % (AUTO) 4.3 % (22.0-44.0); MEAN CORPUSCULAR HEMOGLOBIN 27.4 pg (26.0-34.0); MEAN CORPUSCULAR HGB CONC 32.2 G/dL (31.0-37.0); MEAN CORPUSCULAR VOLUME 85 fL (80-100); MONOCYTES # (AUTO) 0.7 K/uL (0.1-1.0); MONOCYTES % (AUTO) 5.1 % (2.0-9.0); NEUTROPHILS # (AUTO) 11.6 K/uL (1.8-7.7); PLATELET COUNT (AUTO) 335 K/uL (150-450); RED BLOOD CELL COUNT(AUTO) 3.39 MIL/uL (4.50-5.90)
[2019-05-18] MEDS ORDERED: VANCOMYCIN HCL 1 GM/D5% WATER 200 ML IV ONE (08:00)
[2019-05-18 08:03] LABS: ALANINE AMINOTRANSFERASE 16 U/L (12-78); ALBUMIN 1.3 g/dL (3.4-5.0); ALKALINE PHOSPHATASE 106 U/L (46-116); ANION GAP 8 mmol/L (8-16); ASPARTATE AMINOTRANSFERASE 22 U/L (15-37); BILIRUBIN,TOTAL 0.4 mg/dL (0.1-1.0); CARBON DIOXIDE 25 mmol/L (22-29); CHLORIDE 107 mmol/L (98-107); CREATININE 0.71 mg/dL (0.60-1.30); GLUCOSE,RANDOM 127 mg/dL (70-110); SODIUM SERUM 140 mmol/L (136-145); TOTAL PROTEIN, SERUM 6.1 g/dL (6.4-8.2); UREA NITROGEN, BLOOD 45 mg/dL (7-18)
[2019-05-18 08:04] LABS: GLOMERULAR FILTR. RATE CALC > 60 mL/min (>60)
[2019-05-18 08:51] LABS: NEUTROPHILS % (AUTO) 90.4 % (40.0-70.0)
[2019-05-18] MEDS ORDERED: ALBUTEROL SULFATE 2.5 MG/0.5 ML NEB SOLUTION NEB PRN (09:00)
[2019-05-18] MEDS ORDERED: IPRATROPIUM BROMIDE 0.5 MG/2.5 ML NEB SOLUTION NEB PRN (09:00)
[2019-05-18] MEDS: ASPIRIN 81 MG CHEWABLE TABLET JT SCH (09:40)
[2019-05-18] MEDS ORDERED: SODIUM CHLORIDE 0.9% 1,000 ML IV ONE (10:00)
[2019-05-18 10:48] VITALS: BP 108/63
[2019-05-18 15:41] VITALS: BP 104/67
[2019-05-18] MEDS: VANCOMYCIN HCL 1 GM/D5% WATER 200 ML IV SCH (19:52)
[2019-05-18] MEDS ORDERED: VANCOMYCIN HCL 750 MG in DEXTROSE 5%-WATER 250 ML IV SCH (20:00)
[2019-05-18 20:13] VITALS: BP 111/66
[2019-05-18] MEDS ORDERED: SODIUM CHLORIDE 0.9% 1,000 ML, SODIUM CHLORIDE 0.9% 1,000 ML IV SCH (22:15)
[2019-05-18] MEDS ORDERED: OxyCODONE HCL/ACETAMINOPHEN 5-325 MG TABLET PO PRN (22:15)
[2019-05-18] MEDS ORDERED: SODIUM CHLORIDE 0.9% 1,000 ML IV SCH (23:00)
[2019-05-18] MEDS ORDERED: ACETAMINOPHEN 325 MG TABLET PO PRN (23:30)
[2019-05-18] MEDS ORDERED: ONDANSETRON HCL 4 MG/2 ML VIAL IVP PRN (23:30)
[2019-05-18] MEDS ORDERED: MAGNESIUM HYDROXIDE SUSPENSION 30 ML UDCUP PO PRN (23:30)
[2019-05-18] MEDS ORDERED: 0.9% SODIUM CHLORIDE 10 ML SYRINGE IVP PRN (23:30)
[2019-05-19 00:26] VITALS: BP 100/64
[2019-05-19] MEDS: PIPERACILLIN/TAZO 3.375 GM/D5W 50 ML IV SCH ×4 (00:44→17:36)
[2019-05-19] MEDS: MethylPREDNISolone SOD SUCC 125 MG/2 ML VIAL IVP SCH ×3 (00:44→16:49)
[2019-05-19 04:06] VITALS: BP 126/66
[2019-05-19] MEDS: LEVOTHYROXINE SODIUM 88 MCG TABLET JT SCH (05:35)
[2019-05-19] MEDS: ALBUTEROL SULFATE 2.5 MG/0.5 ML NEB SOLUTION NEB SCH ×3 (07:06→19:47)
[2019-05-19] MEDS: IPRATROPIUM BROMIDE 0.5 MG/2.5 ML NEB SOLUTION NEB SCH ×3 (07:07→19:47)
[2019-05-19 07:24] VITALS: BP 125/74
[2019-05-19 07:38] LABS: BASOPHILS % (AUTO) 0.1 % (0.0-2.0); EOSINOPHILS % (AUTO) 0 % (1.0-6.0); HEMATOCRIT 31.4 % (41-53); LYMPHOCYTES # (AUTO) 0.3 K/uL (1.0-4.8); LYMPHOCYTES % (AUTO) 2.1 % (22.0-44.0); MEAN CORPUSCULAR HEMOGLOBIN 26.9 pg (26.0-34.0); MEAN CORPUSCULAR HGB CONC 31.8 G/dL (31.0-37.0); MEAN CORPUSCULAR VOLUME 85 fL (80-100); MONOCYTES # (AUTO) 0.1 K/uL (0.1-1.0); MONOCYTES % (AUTO) 0.9 % (2.0-9.0); NEUTROPHILS # (AUTO) 13.8 K/uL (1.8-7.7); PLATELET COUNT (AUTO) 389 K/uL (150-450); RED BLOOD CELL COUNT(AUTO) 3.71 MIL/uL (4.50-5.90)
[2019-05-19 07:46] LABS: ANION GAP 8 mmol/L (8-16); CALCIUM, TOTAL 8.7 mg/dL (8.8-10.5); CARBON DIOXIDE 25 mmol/L (22-29); CHLORIDE 108 mmol/L (98-107); CREATININE 0.57 mg/dL (0.60-1.30); GLUCOSE,RANDOM 206 mg/dL (70-110); NEUTROPHILS % (AUTO) 96.9 % (40.0-70.0); POTASSIUM 4.3 mmol/L (3.5-5.1); SODIUM SERUM 141 mmol/L (136-145); UREA NITROGEN, BLOOD 32 mg/dL (7-18)
[2019-05-19 07:48] LABS: GLOMERULAR FILTR. RATE CALC > 60 mL/min (>60)
[2019-05-19] MEDS: ASPIRIN 81 MG CHEWABLE TABLET JT SCH (08:55)
[2019-05-19] MEDS: FAMOTIDINE 10 MG/ML 2 ML VIAL IVP SCH (08:56)
[2019-05-19] MEDS: OxyCODONE HCL/ACETAMINOPHEN 5-325 MG TABLET PO PRN ×3 (08:56→21:39)
[2019-05-19] MEDS: VANCOMYCIN HCL 1 GM/D5% WATER 200 ML IV SCH ×2 (08:57→20:00)
[2019-05-19] MEDS: DOCUSATE SODIUM 100 MG CAPSULE PO SCH ×2 (08:57→20:25)
[2019-05-19] MEDS ORDERED: DEXTROSE 50%-WATER 25 GM/50 ML SYRINGE IVP PRN (15:00)
[2019-05-19 15:30] VITALS: BP 113/67
[2019-05-19] MEDS: INSULIN REGULAR, HUMAN 100 UNITS/ML SQ PRN ×2 (17:33→21:24)
[2019-05-19 19:56] VITALS: BP 144/81
[2019-05-19 21:35] LABS: GLUCOMETER DEV NAME(LOC) 5N.1; GLUCOSE,POINT OF CARE 285 MG/DL (70-110)
[2019-05-19 21:35] LABS: GLUCOMETER DEV NAME(LOC) 5N.1; GLUCOSE,POINT OF CARE 288 MG/DL (70-110)
[2019-05-20] VITALS (7 sets, daily range): BP systolic 120–151; BP diastolic 73–88
[2019-05-20] MEDS: PIPERACILLIN/TAZO 3.375 GM/D5W 50 ML IV SCH ×4 (00:33→16:50)
[2019-05-20] MEDS: MethylPREDNISolone SOD SUCC 125 MG/2 ML VIAL IVP SCH ×3 (00:34→16:50)
[2019-05-20] MEDS: IPRATROPIUM BROMIDE 0.5 MG/2.5 ML NEB SOLUTION NEB SCH ×4 (01:32→21:15)
[2019-05-20] MEDS: ALBUTEROL SULFATE 2.5 MG/0.5 ML NEB SOLUTION NEB SCH ×4 (01:32→21:15)
[2019-05-20] MEDS: OxyCODONE HCL/ACETAMINOPHEN 5-325 MG TABLET PO PRN ×3 (06:32→21:26)
[2019-05-20 06:41] LABS: EOSINOPHILS % (AUTO) 0 % (1.0-6.0); HEMATOCRIT 31.2 % (41-53); LYMPHOCYTES # (AUTO) 0.3 K/uL (1.0-4.8); LYMPHOCYTES % (AUTO) 2.7 % (22.0-44.0); MEAN CORPUSCULAR HEMOGLOBIN 27.2 pg (26.0-34.0); MEAN CORPUSCULAR VOLUME 85 fL (80-100); MONOCYTES # (AUTO) 0.2 K/uL (0.1-1.0); MONOCYTES % (AUTO) 1.6 % (2.0-9.0); NEUTROPHILS # (AUTO) 10.8 K/uL (1.8-7.7); PLATELET COUNT (AUTO) 446 K/uL (150-450); RED BLOOD CELL COUNT(AUTO) 3.67 MIL/uL (4.50-5.90); RED CELL DISTRIBUTION WIDTH 18.4 % (11.5-14.5)
[2019-05-20] MEDS: INSULIN REGULAR, HUMAN 100 UNITS/ML SQ PRN ×3 (06:47→21:39)
[2019-05-20 07:00] LABS: ANION GAP 8 mmol/L (8-16); CALCIUM, TOTAL 9.3 mg/dL (8.8-10.5); CARBON DIOXIDE 26 mmol/L (22-29); CHLORIDE 104 mmol/L (98-107); CREATININE 0.96 mg/dL (0.60-1.30); GLUCOSE,RANDOM 351 mg/dL (70-110); NEUTROPHILS % (AUTO) 95.7 % (40.0-70.0); POTASSIUM 4.2 mmol/L (3.5-5.1); SODIUM SERUM 138 mmol/L (136-145); UREA NITROGEN, BLOOD 40 mg/dL (7-18); VANCOMYCIN,RANDOM 24.3 mcg/mL (25.0-50.0)
[2019-05-20 07:04] LABS: GLOMERULAR FILTR. RATE CALC > 60 mL/min (>60)
[2019-05-20] MEDS: LEVOTHYROXINE SODIUM 88 MCG TABLET JT SCH (07:29)
[2019-05-20 07:39] LABS: GLUCOMETER DEV NAME(LOC) 5S.1; GLUCOSE,POINT OF CARE 340 MG/DL (70-110)
[2019-05-20] MEDS: VANCOMYCIN HCL 1 GM/D5% WATER 200 ML IV SCH ×2 (08:00→21:26)
[2019-05-20] MEDS: DOCUSATE SODIUM 100 MG CAPSULE PO SCH ×2 (10:11→21:35)
[2019-05-20] MEDS: FAMOTIDINE 10 MG/ML 2 ML VIAL IVP SCH (10:11)
[2019-05-20] MEDS: ASPIRIN 81 MG CHEWABLE TABLET JT SCH (10:11)
[2019-05-20] MEDS: INSULIN GLARGINE,HUM.REC.ANLOG 100 UNITS/ML SQ SCH (21:37)
[2019-05-20 21:58] LABS: GLUCOMETER DEV NAME(LOC) 5S.1; GLUCOSE,POINT OF CARE 202 MG/DL (70-110)
[2019-05-20 21:58] LABS: GLUCOMETER DEV NAME(LOC) 5S.1; GLUCOSE,POINT OF CARE 303 MG/DL (70-110)
[2019-05-20 21:58] LABS: GLUCOMETER DEV NAME(LOC) 5S.1; GLUCOSE,POINT OF CARE 211 MG/DL (70-110)
[2019-05-21] MEDS: MethylPREDNISolone SOD SUCC 125 MG/2 ML VIAL IVP SCH ×4 (00:28→23:08)
[2019-05-21] MEDS: PIPERACILLIN/TAZO 3.375 GM/D5W 50 ML IV SCH ×5 (00:28→23:07)
[2019-05-21] MEDS: IPRATROPIUM BROMIDE 0.5 MG/2.5 ML NEB SOLUTION NEB SCH ×4 (02:00→19:41)
[2019-05-21] MEDS: ALBUTEROL SULFATE 2.5 MG/0.5 ML NEB SOLUTION NEB SCH ×4 (02:00→19:41)
[2019-05-21 04:08] VITALS: BP 141/79
[2019-05-21] MEDS: LEVOTHYROXINE SODIUM 88 MCG TABLET JT SCH (05:58)
[2019-05-21] MEDS: INSULIN REGULAR, HUMAN 100 UNITS/ML SQ PRN ×4 (06:00→21:05)
[2019-05-21 07:00] LABS: EOSINOPHILS % (AUTO) 0 % (1.0-6.0); HEMATOCRIT 29.3 % (41-53); HEMOGLOBIN 9.4 g/dL (13.5-17.5); LYMPHOCYTES # (AUTO) 0.3 K/uL (1.0-4.8); LYMPHOCYTES % (AUTO) 2.2 % (22.0-44.0); MEAN CORPUSCULAR HEMOGLOBIN 27.3 pg (26.0-34.0); MEAN CORPUSCULAR VOLUME 85 fL (80-100); MONOCYTES # (AUTO) 0.3 K/uL (0.1-1.0); MONOCYTES % (AUTO) 1.9 % (2.0-9.0); NEUTROPHILS # (AUTO) 14.3 K/uL (1.8-7.7); PLATELET COUNT (AUTO) 448 K/uL (150-450); RED BLOOD CELL COUNT(AUTO) 3.44 MIL/uL (4.50-5.90)
[2019-05-21 07:03] LABS: NEUTROPHILS % (AUTO) 95.9 % (40.0-70.0)
[2019-05-21 07:20] LABS: ANION GAP 7 mmol/L (8-16); CALCIUM, TOTAL 8.9 mg/dL (8.8-10.5); CARBON DIOXIDE 28 mmol/L (22-29); CHLORIDE 107 mmol/L (98-107); CREATININE 0.85 mg/dL (0.60-1.30); GLOMERULAR FILTR. RATE CALC > 60 mL/min (>60); GLUCOSE,RANDOM 238 mg/dL (70-110); POTASSIUM 4.5 mmol/L (3.5-5.1); SODIUM SERUM 142 mmol/L (136-145); UREA NITROGEN, BLOOD 41 mg/dL (7-18)
[2019-05-21 08:35] VITALS: BP 145/73
[2019-05-21 08:38] LABS: GLUCOMETER DEV NAME(LOC) 5S.1; GLUCOSE,POINT OF CARE 225 MG/DL (70-110)
[2019-05-21] MEDS: VANCOMYCIN HCL 1 GM/D5% WATER 200 ML IV SCH ×2 (08:44→21:01)
[2019-05-21] MEDS: DOCUSATE SODIUM 100 MG CAPSULE PO SCH ×2 (08:45→21:01)
[2019-05-21] MEDS: ASPIRIN 81 MG CHEWABLE TABLET JT SCH (08:45)
[2019-05-21] MEDS: FAMOTIDINE 10 MG/ML 2 ML VIAL IVP SCH (08:45)
[2019-05-21 11:46] VITALS: BP 143/89
[2019-05-21 16:46] VITALS: BP 140/95
[2019-05-21 19:36] LABS: GLUCOMETER DEV NAME(LOC) 5S.1; GLUCOSE,POINT OF CARE 181 MG/DL (70-110)
[2019-05-21 19:36] LABS: GLUCOMETER DEV NAME(LOC) 5S.1; GLUCOSE,POINT OF CARE 213 MG/DL (70-110)
[2019-05-21 19:48] VITALS: BP 147/76
[2019-05-21] MEDS: INSULIN GLARGINE,HUM.REC.ANLOG 100 UNITS/ML SQ SCH (21:04)
[2019-05-21 23:27] VITALS: BP 154/87
[2019-05-22 00:40] LABS: GLUCOMETER DEV NAME(LOC) 5N.1; GLUCOSE,POINT OF CARE 238 MG/DL (70-110)
[2019-05-22] MEDS: IPRATROPIUM BROMIDE 0.5 MG/2.5 ML NEB SOLUTION NEB SCH ×4 (02:00→20:27)
[2019-05-22] MEDS: ALBUTEROL SULFATE 2.5 MG/0.5 ML NEB SOLUTION NEB SCH ×4 (02:00→20:27)
[2019-05-22 03:58] VITALS: BP 145/80
[2019-05-22] MEDS: LEVOTHYROXINE SODIUM 88 MCG TABLET JT SCH (05:36)
[2019-05-22] MEDS: PIPERACILLIN/TAZO 3.375 GM/D5W 50 ML IV SCH ×3 (05:36→17:19)
[2019-05-22] MEDS: OxyCODONE HCL/ACETAMINOPHEN 5-325 MG TABLET PO PRN (05:36)
[2019-05-22] MEDS: INSULIN REGULAR, HUMAN 100 UNITS/ML SQ PRN ×4 (05:37→21:48)
[2019-05-22 06:27] LABS: BASOPHILS % (AUTO) 0.1 % (0.0-2.0); EOSINOPHILS % (AUTO) 0 % (1.0-6.0); HEMOGLOBIN 10.1 g/dL (13.5-17.5); LYMPHOCYTES # (AUTO) 0.3 K/uL (1.0-4.8); MEAN CORPUSCULAR HEMOGLOBIN 27.4 pg (26.0-34.0); MEAN CORPUSCULAR HGB CONC 32.5 G/dL (31.0-37.0); MEAN CORPUSCULAR VOLUME 84 fL (80-100); MONOCYTES # (AUTO) 0.4 K/uL (0.1-1.0); MONOCYTES % (AUTO) 3.4 % (2.0-9.0); NEUTROPHILS # (AUTO) 9.9 K/uL (1.8-7.7); PLATELET COUNT (AUTO) 471 K/uL (150-450); RED BLOOD CELL COUNT(AUTO) 3.67 MIL/uL (4.50-5.90); RED CELL DISTRIBUTION WIDTH 18.2 % (11.5-14.5)
[2019-05-22 06:39] LABS: NEUTROPHILS % (AUTO) 93.5 % (40.0-70.0)
[2019-05-22 06:49] LABS: ANION GAP 8 mmol/L (8-16); CALCIUM, TOTAL 9.3 mg/dL (8.8-10.5); CARBON DIOXIDE 27 mmol/L (22-29); CHLORIDE 101 mmol/L (98-107); CREATININE 0.79 mg/dL (0.60-1.30); GLUCOSE,RANDOM 245 mg/dL (70-110); POTASSIUM 4.1 mmol/L (3.5-5.1); SODIUM SERUM 136 mmol/L (136-145); UREA NITROGEN, BLOOD 37 mg/dL (7-18)
[2019-05-22 06:53] LABS: GLOMERULAR FILTR. RATE CALC > 60 mL/min (>60)
[2019-05-22 07:21] VITALS: BP 151/94
[2019-05-22] MEDS ORDERED: MAGNESIUM HYDROXIDE SUSPENSION 30 ML UDCUP JT PRN (08:15)
[2019-05-22] MEDS: DOCUSATE SODIUM 100 MG/10 ML LIQUID UDCUP JT SCH ×2 (09:05→21:00)
[2019-05-22] MEDS: ASPIRIN 81 MG CHEWABLE TABLET JT SCH (09:05)
[2019-05-22] MEDS: FAMOTIDINE 10 MG/ML 2 ML VIAL IVP SCH (09:06)
[2019-05-22] MEDS: MethylPREDNISolone SOD SUCC 125 MG/2 ML VIAL IVP SCH ×2 (09:07→15:36)
[2019-05-22] MEDS: VANCOMYCIN HCL 1 GM/D5% WATER 200 ML IV SCH ×2 (09:13→21:45)
[2019-05-22 10:25] LABS: GLUCOMETER DEV NAME(LOC) 5N.1; GLUCOSE,POINT OF CARE 248 MG/DL (70-110)
[2019-05-22 10:59] VITALS: BP 141/81
[2019-05-22 12:30] LABS: GLUCOMETER DEV NAME(LOC) 5N.1; GLUCOSE,POINT OF CARE 196 MG/DL (70-110)
[2019-05-22 15:59] VITALS: BP 136/74
[2019-05-22] MEDS: OxyCODONE HCL/ACETAMINOPHEN 5-325 MG TABLET JT PRN ×2 (16:16→21:45)
[2019-05-22 19:27] VITALS: BP 156/92
[2019-05-22 21:15] LABS: GLUCOMETER DEV NAME(LOC) 5N.1; GLUCOSE,POINT OF CARE 169 MG/DL (70-110)
[2019-05-22] MEDS: INSULIN GLARGINE,HUM.REC.ANLOG 100 UNITS/ML SQ SCH (21:47)
[2019-05-23] MEDS: MethylPREDNISolone SOD SUCC 125 MG/2 ML VIAL IVP SCH ×2 (00:01→08:25)
[2019-05-23] MEDS: PIPERACILLIN/TAZO 3.375 GM/D5W 50 ML IV SCH ×3 (00:01→11:23)
[2019-05-23 00:15] VITALS: BP 139/67
[2019-05-23] MEDS: IPRATROPIUM BROMIDE 0.5 MG/2.5 ML NEB SOLUTION NEB SCH ×4 (02:18→22:01)
[2019-05-23] MEDS: ALBUTEROL SULFATE 2.5 MG/0.5 ML NEB SOLUTION NEB SCH ×4 (02:18→22:01)
[2019-05-23 05:18] VITALS: BP 147/91
[2019-05-23] MEDS: LEVOTHYROXINE SODIUM 88 MCG TABLET JT SCH (05:33)
[2019-05-23] MEDS: INSULIN REGULAR, HUMAN 100 UNITS/ML SQ PRN ×4 (05:36→20:41)
[2019-05-23 06:00] LABS: BASOPHILS % (AUTO) 0.1 % (0.0-2.0); EOSINOPHILS % (AUTO) 0 % (1.0-6.0); HEMATOCRIT 31.6 % (41-53); HEMOGLOBIN 10.3 g/dL (13.5-17.5); LYMPHOCYTES # (AUTO) 0.3 K/uL (1.0-4.8); LYMPHOCYTES % (AUTO) 3.6 % (22.0-44.0); MEAN CORPUSCULAR HEMOGLOBIN 27.3 pg (26.0-34.0); MEAN CORPUSCULAR HGB CONC 32.5 G/dL (31.0-37.0); MEAN CORPUSCULAR VOLUME 84 fL (80-100); MONOCYTES # (AUTO) 0.4 K/uL (0.1-1.0); MONOCYTES % (AUTO) 4.1 % (2.0-9.0); NEUTROPHILS # (AUTO) 7.9 K/uL (1.8-7.7); PLATELET COUNT (AUTO) 433 K/uL (150-450); RED BLOOD CELL COUNT(AUTO) 3.77 MIL/uL (4.50-5.90); RED CELL DISTRIBUTION WIDTH 18.2 % (11.5-14.5)
[2019-05-23 06:06] LABS: NEUTROPHILS % (AUTO) 92.2 % (40.0-70.0)
[2019-05-23 06:16] LABS: ANION GAP 5 mmol/L (8-16); CALCIUM, TOTAL 8.8 mg/dL (8.8-10.5); CARBON DIOXIDE 30 mmol/L (22-29); CHLORIDE 99 mmol/L (98-107); CREATININE 0.78 mg/dL (0.60-1.30); GLOMERULAR FILTR. RATE CALC > 60 mL/min (>60); GLUCOSE,RANDOM 216 mg/dL (70-110); POTASSIUM 4.2 mmol/L (3.5-5.1); SODIUM SERUM 134 mmol/L (136-145); UREA NITROGEN, BLOOD 31 mg/dL (7-18); VANCOMYCIN,RANDOM 23.8 mcg/mL (25.0-50.0)
[2019-05-23 07:32] VITALS: BP 156/88
[2019-05-23 08:08] LABS: GLUCOMETER DEV NAME(LOC) 5N.1; GLUCOSE,POINT OF CARE 205 MG/DL (70-110)
[2019-05-23 08:08] LABS: GLUCOMETER DEV NAME(LOC) 5N.1; GLUCOSE,POINT OF CARE 198 MG/DL (70-110)
[2019-05-23] MEDS: FAMOTIDINE 10 MG/ML 2 ML VIAL IVP SCH (08:26)
[2019-05-23] MEDS: ASPIRIN 81 MG CHEWABLE TABLET JT SCH (08:26)
[2019-05-23] MEDS: DOCUSATE SODIUM 100 MG/10 ML LIQUID UDCUP JT SCH ×3 (08:26→21:00)
[2019-05-23] MEDS: VANCOMYCIN HCL 1 GM/D5% WATER 200 ML IV SCH (08:27)
[2019-05-23] MEDS: OxyCODONE HCL/ACETAMINOPHEN 5-325 MG TABLET JT PRN (09:03)
[2019-05-23 11:24] LABS: GLUCOMETER DEV NAME(LOC) 5N.1; GLUCOSE,POINT OF CARE 196 MG/DL (70-110)
[2019-05-23 11:55] VITALS: BP 153/84
[2019-05-23] MEDS ORDERED: SODIUM CHLORIDE 0.9% 100 ML ONE (12:13)
[2019-05-23] MEDS: MethylPREDNISolone SOD SUCC 40 MG/ML VIAL IVP SCH ×2 (15:35→23:14)
[2019-05-23 16:00] VITALS: BP 141/79
[2019-05-23] MEDS ORDERED: AMOX TR/POT CLAV 500 MG/125 MG TABLET PO SCH (16:00)
[2019-05-23 17:20] LABS: GLUCOMETER DEV NAME(LOC) 5N.1; GLUCOSE,POINT OF CARE 175 MG/DL (70-110)
[2019-05-23] MEDS: CefTRIAXone SODIUM 2 GM in DEXTROSE 5%-WATER 50 ML IV SCH (18:01)
[2019-05-23 20:10] VITALS: BP 145/88
[2019-05-23] MEDS: INSULIN GLARGINE,HUM.REC.ANLOG 100 UNITS/ML SQ SCH (20:39)
[2019-05-23 22:56] LABS: GLUCOMETER DEV NAME(LOC) 5S.1; GLUCOSE,POINT OF CARE 215 MG/DL (70-110)
[2019-05-24 00:26] VITALS: BP 123/85
[2019-05-24] MEDS: IPRATROPIUM BROMIDE 0.5 MG/2.5 ML NEB SOLUTION NEB SCH ×4 (02:00→19:34)
[2019-05-24] MEDS: ALBUTEROL SULFATE 2.5 MG/0.5 ML NEB SOLUTION NEB SCH ×4 (02:00→19:34)
[2019-05-24 05:05] VITALS: BP 110/76
[2019-05-24] MEDS: LEVOTHYROXINE SODIUM 88 MCG TABLET JT SCH (05:18)
[2019-05-24] MEDS: INSULIN REGULAR, HUMAN 100 UNITS/ML SQ PRN (05:37)
[2019-05-24 07:03] LABS: ANION GAP 5 mmol/L (8-16); CALCIUM, TOTAL 8.6 mg/dL (8.8-10.5); CARBON DIOXIDE 30 mmol/L (22-29); CHLORIDE 99 mmol/L (98-107); CREATININE 0.74 mg/dL (0.60-1.30); GLUCOSE,RANDOM 138 mg/dL (70-110); POTASSIUM 4.1 mmol/L (3.5-5.1); SODIUM SERUM 134 mmol/L (136-145); UREA NITROGEN, BLOOD 28 mg/dL (7-18)
[2019-05-24 07:06] LABS: GLUCOMETER DEV NAME(LOC) 5S.1; GLUCOSE,POINT OF CARE 165 MG/DL (70-110)
[2019-05-24 07:10] LABS: GLOMERULAR FILTR. RATE CALC > 60 mL/min (>60)
[2019-05-24 07:20] VITALS: BP 132/74
[2019-05-24] MEDS: MethylPREDNISolone SOD SUCC 40 MG/ML VIAL IVP SCH ×3 (08:46→23:14)
[2019-05-24] MEDS: DOCUSATE SODIUM 100 MG/10 ML LIQUID UDCUP JT SCH ×2 (08:47→20:58)
[2019-05-24] MEDS: FAMOTIDINE 10 MG/ML 2 ML VIAL IVP SCH (08:47)
[2019-05-24] MEDS: ASPIRIN 81 MG CHEWABLE TABLET JT SCH (08:47)
[2019-05-24 11:27] VITALS: BP 117/73
[2019-05-24 12:40] LABS: GLUCOMETER DEV NAME(LOC) 5S.1; GLUCOSE,POINT OF CARE 130 MG/DL (70-110)
[2019-05-24 16:14] VITALS: BP 126/70
[2019-05-24] MEDS: CefTRIAXone SODIUM 2 GM in DEXTROSE 5%-WATER 50 ML IV SCH (17:56)
[2019-05-24] MEDS: MetFORMIN HCL 500 MG TABLET PO SCH (17:56)
[2019-05-24 20:11] VITALS: BP 135/74
[2019-05-25] VITALS (7 sets, daily range): BP systolic 112–157; BP diastolic 54–78
[2019-05-25] MEDS: ALBUTEROL SULFATE 2.5 MG/0.5 ML NEB SOLUTION NEB SCH ×4 (01:23→20:16)
[2019-05-25] MEDS: IPRATROPIUM BROMIDE 0.5 MG/2.5 ML NEB SOLUTION NEB SCH ×4 (01:23→20:16)
[2019-05-25 03:07] LABS: GLUCOMETER DEV NAME(LOC) 5N.1; GLUCOSE,POINT OF CARE 150 MG/DL (70-110)
[2019-05-25] MEDS: LEVOTHYROXINE SODIUM 88 MCG TABLET JT SCH (05:15)
[2019-05-25] MEDS: INSULIN REGULAR, HUMAN 100 UNITS/ML SQ PRN ×3 (05:24→20:42)
[2019-05-25] MEDS: MetFORMIN HCL 500 MG TABLET PO SCH ×2 (08:18→17:35)
[2019-05-25] MEDS: FAMOTIDINE 10 MG/ML 2 ML VIAL IVP SCH (08:18)
[2019-05-25] MEDS: MethylPREDNISolone SOD SUCC 40 MG/ML VIAL IVP SCH ×2 (08:18→15:36)
[2019-05-25] MEDS: ASPIRIN 81 MG CHEWABLE TABLET JT SCH (08:18)
[2019-05-25] MEDS: DOCUSATE SODIUM 100 MG/10 ML LIQUID UDCUP JT SCH (08:18)
[2019-05-25] MEDS: CefoTEtan DISOD 2 GM/DEXTROSE 50 ML IV SCH (17:35)
[2019-05-26] MEDS: MethylPREDNISolone SOD SUCC 40 MG/ML VIAL IVP SCH ×2 (00:19→08:43)
[2019-05-26] MEDS: DOCUSATE SODIUM 100 MG/10 ML LIQUID UDCUP JT SCH ×3 (00:20→20:01)
[2019-05-26] MEDS: IPRATROPIUM BROMIDE 0.5 MG/2.5 ML NEB SOLUTION NEB SCH ×4 (03:10→20:09)
[2019-05-26] MEDS: ALBUTEROL SULFATE 2.5 MG/0.5 ML NEB SOLUTION NEB SCH ×4 (03:11→20:09)
[2019-05-26 04:25] VITALS: BP 123/68
[2019-05-26] MEDS: CefoTEtan DISOD 2 GM/DEXTROSE 50 ML IV SCH ×2 (05:07→17:28)
[2019-05-26] MEDS: LEVOTHYROXINE SODIUM 88 MCG TABLET JT SCH (05:08)
[2019-05-26 05:15] LABS: GLUCOMETER DEV NAME(LOC) 5N.1; GLUCOSE,POINT OF CARE 178 MG/DL (70-110)
[2019-05-26 08:21] VITALS: BP 116/76
[2019-05-26] MEDS: FAMOTIDINE 10 MG/ML 2 ML VIAL IVP SCH (08:43)
[2019-05-26] MEDS: ASPIRIN 81 MG CHEWABLE TABLET JT SCH (08:44)
[2019-05-26] MEDS: MetFORMIN HCL 500 MG TABLET PO SCH ×2 (08:44→17:28)
[2019-05-26] MEDS: PredniSONE 20 MG TABLET PO SCH (11:55)
[2019-05-26 11:57] VITALS: BP 144/80
[2019-05-26 15:24] LABS: GLUCOMETER DEV NAME(LOC) 5S.1; GLUCOSE,POINT OF CARE 172 MG/DL (70-110)
[2019-05-26 15:24] LABS: GLUCOMETER DEV NAME(LOC) 5S.1; GLUCOSE,POINT OF CARE 154 MG/DL (70-110)
[2019-05-26 15:24] LABS: GLUCOMETER DEV NAME(LOC) 5S.1; GLUCOSE,POINT OF CARE 196 MG/DL (70-110)
[2019-05-26 15:24] LABS: GLUCOMETER DEV NAME(LOC) 5S.1; GLUCOSE,POINT OF CARE 136 MG/DL (70-110)
[2019-05-26 15:24] LABS: GLUCOMETER DEV NAME(LOC) 5S.1; GLUCOSE,POINT OF CARE 152 MG/DL (70-110)
[2019-05-26 16:01] VITALS: BP 138/84
[2019-05-26] MEDS: INSULIN REGULAR, HUMAN 100 UNITS/ML SQ PRN ×2 (17:40→20:24)
[2019-05-26] MEDS: SULFAMETHOX/TRIMETH DS 800-160 MG/TABLET PO SCH (20:01)
[2019-05-26 20:37] VITALS: BP 121/69
[2019-05-26 23:32] LABS: GLUCOMETER DEV NAME(LOC) 5N.1; GLUCOSE,POINT OF CARE 183 MG/DL (70-110)
[2019-05-27] VITALS (8 sets, daily range): BP systolic 99–127; BP diastolic 56–76
[2019-05-27] MEDS: ALBUTEROL SULFATE 2.5 MG/0.5 ML NEB SOLUTION NEB SCH ×4 (02:50→19:54)
[2019-05-27] MEDS: IPRATROPIUM BROMIDE 0.5 MG/2.5 ML NEB SOLUTION NEB SCH ×4 (02:50→19:54)
[2019-05-27] MEDS: CefoTEtan DISOD 2 GM/DEXTROSE 50 ML IV SCH ×2 (06:21→17:59)
[2019-05-27] MEDS: LEVOTHYROXINE SODIUM 88 MCG TABLET JT SCH (06:21)
[2019-05-27 06:56] LABS: GLUCOMETER DEV NAME(LOC) 5N.1; GLUCOSE,POINT OF CARE 138 MG/DL (70-110)
[2019-05-27 06:56] LABS: GLUCOMETER DEV NAME(LOC) 5S.1; GLUCOSE,POINT OF CARE 142 MG/DL (70-110)
[2019-05-27] MEDS: MetFORMIN HCL 500 MG TABLET PO SCH ×2 (09:55→17:54)
[2019-05-27] MEDS: DOCUSATE SODIUM 100 MG/10 ML LIQUID UDCUP JT SCH ×2 (09:55→21:17)
[2019-05-27] MEDS: SULFAMETHOX/TRIMETH DS 800-160 MG/TABLET PO SCH ×2 (09:55→21:21)
[2019-05-27] MEDS: ASPIRIN 81 MG CHEWABLE TABLET JT SCH (09:55)
[2019-05-27] MEDS: PredniSONE 20 MG TABLET PO SCH (09:55)
[2019-05-27] MEDS: FAMOTIDINE 10 MG/ML 2 ML VIAL IVP SCH (09:57)
[2019-05-27] MEDS: INSULIN REGULAR, HUMAN 100 UNITS/ML SQ PRN ×2 (11:41→18:03)
[2019-05-27 14:13] LABS: GLUCOMETER DEV NAME(LOC) 5S.1; GLUCOSE,POINT OF CARE 144 MG/DL (70-110)
[2019-05-27] MEDS ORDERED: VITAMINS A & D 113 GM OINTMENT TP SCH (16:00)
[2019-05-27 19:07] LABS: GLUCOMETER DEV NAME(LOC) 5N.1; GLUCOSE,POINT OF CARE 166 MG/DL (70-110)
[2019-05-27] MEDS: OxyCODONE HCL/ACETAMINOPHEN 5-325 MG TABLET JT PRN (21:21)
[2019-05-27] MEDS: NYSTATIN 30 GM CREAM TP SCH (21:21)
[2019-05-27 21:37] LABS: GLUCOMETER DEV NAME(LOC) 5S.1; GLUCOSE,POINT OF CARE 122 MG/DL (70-110)
[2019-05-28] VITALS (8 sets, daily range): BP systolic 98–129; BP diastolic 61–80
[2019-05-28] MEDS: IPRATROPIUM BROMIDE 0.5 MG/2.5 ML NEB SOLUTION NEB SCH ×4 (02:00→20:38)
[2019-05-28] MEDS: ALBUTEROL SULFATE 2.5 MG/0.5 ML NEB SOLUTION NEB SCH ×4 (02:00→20:38)
[2019-05-28] MEDS: CefoTEtan DISOD 2 GM/DEXTROSE 50 ML IV SCH ×2 (05:28→18:07)
[2019-05-28] MEDS: LEVOTHYROXINE SODIUM 88 MCG TABLET JT SCH (05:31)
[2019-05-28 07:08] LABS: GLUCOMETER DEV NAME(LOC) 5S.1; GLUCOSE,POINT OF CARE 107 MG/DL (70-110)
[2019-05-28] MEDS: FAMOTIDINE 10 MG/ML 2 ML VIAL IVP SCH (08:27)
[2019-05-28] MEDS: SULFAMETHOX/TRIMETH DS 800-160 MG/TABLET PO SCH ×2 (08:27→20:46)
[2019-05-28] MEDS: DOCUSATE SODIUM 100 MG/10 ML LIQUID UDCUP JT SCH ×2 (08:27→20:46)
[2019-05-28] MEDS: PredniSONE 20 MG TABLET PO SCH (08:27)
[2019-05-28] MEDS: MetFORMIN HCL 500 MG TABLET PO SCH ×2 (08:28→18:07)
[2019-05-28] MEDS: ASPIRIN 81 MG CHEWABLE TABLET JT SCH (08:28)
[2019-05-28] MEDS: NYSTATIN 30 GM CREAM TP SCH ×2 (08:28→21:28)
[2019-05-28 19:37] LABS: GLUCOMETER DEV NAME(LOC) 5S.1; GLUCOSE,POINT OF CARE 134 MG/DL (70-110)
[2019-05-28 19:38] LABS: GLUCOMETER DEV NAME(LOC) 5S.1; GLUCOSE,POINT OF CARE 163 MG/DL (70-110)
[2019-05-28] MEDS: INSULIN REGULAR, HUMAN 100 UNITS/ML SQ PRN ×2 (20:11→21:30)
[2019-05-28 20:32] LABS: GLUCOMETER DEV NAME(LOC) 6S.1; GLUCOSE,POINT OF CARE 119 MG/DL (70-110)
[2019-05-28] MEDS: OxyCODONE HCL/ACETAMINOPHEN 5-325 MG TABLET JT PRN (20:47)
[2019-05-29] VITALS (7 sets, daily range): BP systolic 88–124; BP diastolic 54–88
[2019-05-29] MEDS: LEVOTHYROXINE SODIUM 88 MCG TABLET JT SCH (05:57)
[2019-05-29] MEDS: CefoTEtan DISOD 2 GM/DEXTROSE 50 ML IV SCH ×2 (05:58→17:46)
[2019-05-29] MEDS: OxyCODONE HCL/ACETAMINOPHEN 5-325 MG TABLET JT PRN (06:48)
[2019-05-29] MEDS: MetFORMIN HCL 500 MG TABLET PO SCH ×2 (08:00→17:46)
[2019-05-29] MEDS: ASPIRIN 81 MG CHEWABLE TABLET JT SCH (09:00)
[2019-05-29] MEDS: NYSTATIN 30 GM CREAM TP SCH ×2 (09:00→22:19)
[2019-05-29] MEDS: PredniSONE 20 MG TABLET PO SCH (09:00)
[2019-05-29] MEDS: DOCUSATE SODIUM 100 MG/10 ML LIQUID UDCUP JT SCH ×2 (09:00→21:00)
[2019-05-29] MEDS: SULFAMETHOX/TRIMETH DS 800-160 MG/TABLET PO SCH ×2 (09:00→21:00)
[2019-05-29] MEDS: ALBUTEROL SULFATE 2.5 MG/0.5 ML NEB SOLUTION NEB SCH ×2 (10:39→15:34)
[2019-05-29] MEDS: IPRATROPIUM BROMIDE 0.5 MG/2.5 ML NEB SOLUTION NEB SCH ×2 (10:39→15:34)
[2019-05-29] MEDS: FAMOTIDINE 10 MG/ML 2 ML VIAL IVP SCH (11:43)
[2019-05-29] MEDS: INSULIN REGULAR, HUMAN 100 UNITS/ML SQ PRN ×2 (11:49→16:59)
[2019-05-29 16:52] LABS: GLUCOMETER DEV NAME(LOC) 6N.2; GLUCOSE,POINT OF CARE 105 MG/DL (70-110)
[2019-05-29 17:00] LABS: GLUCOMETER DEV NAME(LOC) 6S.1; GLUCOSE,POINT OF CARE 116 MG/DL (70-110)
[2019-05-29 18:08] LABS: GLUCOMETER DEV NAME(LOC) 6N.2; GLUCOSE,POINT OF CARE 158 MG/DL (70-110)
[2019-05-30 00:02] LABS: GLUCOMETER DEV NAME(LOC) 6N.2; GLUCOSE,POINT OF CARE 81 MG/DL (70-110)
[2019-05-30 04:50] VITALS: BP 122/81
[2019-05-30] MEDS: LEVOTHYROXINE SODIUM 88 MCG TABLET JT SCH (06:30)
[2019-05-30] MEDS ORDERED: SODIUM CHLORIDE 0.9% 250 ML IV ONE (06:56)
[2019-05-30] MEDS: CefoTEtan DISOD 2 GM/DEXTROSE 50 ML IV SCH ×2 (07:01→17:50)
[2019-05-30 07:08] LABS: GLUCOMETER DEV NAME(LOC) 6S.1; GLUCOSE,POINT OF CARE 72 MG/DL (70-110)
[2019-05-30] MEDS: MetFORMIN HCL 500 MG TABLET PO SCH ×2 (08:00→17:50)
[2019-05-30 08:15] LABS: BASOPHILS % (AUTO) 0.5 % (0.0-2.0); EOSINOPHILS % (AUTO) 0.2 % (1.0-6.0); HEMATOCRIT 39.5 % (41-53); HEMOGLOBIN 12.4 g/dL (13.5-17.5); LYMPHOCYTES # (AUTO) 0.9 K/uL (1.0-4.8); LYMPHOCYTES % (AUTO) 10.1 % (22.0-44.0); MEAN CORPUSCULAR HEMOGLOBIN 26.6 pg (26.0-34.0); MEAN CORPUSCULAR HGB CONC 31.3 G/dL (31.0-37.0); MEAN CORPUSCULAR VOLUME 85 fL (80-100); MONOCYTES # (AUTO) 0.8 K/uL (0.1-1.0); MONOCYTES % (AUTO) 9.2 % (2.0-9.0); NEUTROPHILS # (AUTO) 7.3 K/uL (1.8-7.7); PLATELET COUNT (AUTO) 418 K/uL (150-450); RED BLOOD CELL COUNT(AUTO) 4.65 MIL/uL (4.50-5.90); RED CELL DISTRIBUTION WIDTH 20.3 % (11.5-14.5)
[2019-05-30 08:23] VITALS: BP 114/60
[2019-05-30 08:31] LABS: ALANINE AMINOTRANSFERASE 15 U/L (12-78); ALBUMIN 2.1 g/dL (3.4-5.0); ALKALINE PHOSPHATASE 95 U/L (46-116); ANION GAP 7 mmol/L (8-16); ASPARTATE AMINOTRANSFERASE 15 U/L (15-37); BILIRUBIN,TOTAL 0.5 mg/dL (0.1-1.0); CALCIUM, TOTAL 9.3 mg/dL (8.8-10.5); CARBON DIOXIDE 29 mmol/L (22-29); CHLORIDE 101 mmol/L (98-107); CREATININE 0.91 mg/dL (0.60-1.30); GLUCOSE,RANDOM 77 mg/dL (70-110); POTASSIUM 4.8 mmol/L (3.5-5.1); SODIUM SERUM 137 mmol/L (136-145); TOTAL PROTEIN, SERUM 6.9 g/dL (6.4-8.2); UREA NITROGEN, BLOOD 20 mg/dL (7-18)
[2019-05-30 08:52] LABS: GLOMERULAR FILTR. RATE CALC > 60 mL/min (>60)
[2019-05-30] MEDS: NYSTATIN 30 GM CREAM TP SCH ×2 (09:00→22:39)
[2019-05-30] MEDS: PANTOPRAZOLE SODIUM 40 MG DR TABLET PO SCH (09:45)
[2019-05-30] MEDS: FAMOTIDINE 10 MG/ML 2 ML VIAL IVP SCH (11:16)
[2019-05-30] MEDS: PredniSONE 20 MG TABLET PO SCH (11:16)
[2019-05-30] MEDS: DOCUSATE SODIUM 100 MG/10 ML LIQUID UDCUP JT SCH ×2 (11:16→22:38)
[2019-05-30] MEDS: SULFAMETHOX/TRIMETH DS 800-160 MG/TABLET PO SCH ×2 (11:16→22:38)
[2019-05-30] MEDS: ESCITALOPRAM OXALATE 10 MG TABLET PO SCH (11:17)
[2019-05-30] MEDS: ASPIRIN 81 MG CHEWABLE TABLET JT SCH (11:17)
[2019-05-30] MEDS ORDERED: SODIUM CHLORIDE 0.9% 1,000 ML IV ONE (11:45)
[2019-05-30 11:53] VITALS: BP 81/51
[2019-05-30 12:23] LABS: GLUCOMETER DEV NAME(LOC) 6S.1; GLUCOSE,POINT OF CARE 78 MG/DL (70-110)
[2019-05-30 15:29] VITALS: BP 74/44
[2019-05-30] MEDS: ALBUTEROL SULFATE 2.5 MG/0.5 ML NEB SOLUTION NEB SCH ×2 (15:39→21:22)
[2019-05-30] MEDS: IPRATROPIUM BROMIDE 0.5 MG/2.5 ML NEB SOLUTION NEB SCH ×2 (15:39→21:22)
[2019-05-30] MEDS: INSULIN REGULAR, HUMAN 100 UNITS/ML SQ PRN ×2 (17:59→23:30)
[2019-05-30 18:19] LABS: GLUCOMETER DEV NAME(LOC) 6S.1; GLUCOSE,POINT OF CARE 159 MG/DL (70-110)
[2019-05-30 20:19] VITALS: BP 94/59
[2019-05-31] VITALS (7 sets, daily range): BP systolic 105–143; BP diastolic 59–76
[2019-05-31 00:22] LABS: GLUCOMETER DEV NAME(LOC) 6S.1; GLUCOSE,POINT OF CARE 148 MG/DL (70-110)
[2019-05-31] MEDS: ALBUTEROL SULFATE 2.5 MG/0.5 ML NEB SOLUTION NEB SCH ×4 (02:00→22:01)
[2019-05-31] MEDS: IPRATROPIUM BROMIDE 0.5 MG/2.5 ML NEB SOLUTION NEB SCH ×4 (02:00→22:01)
[2019-05-31] MEDS: LEVOTHYROXINE SODIUM 88 MCG TABLET JT SCH (06:30)
[2019-05-31] MEDS: PANTOPRAZOLE SODIUM 40 MG DR TABLET PO SCH (06:30)
[2019-05-31] MEDS: CefoTEtan DISOD 2 GM/DEXTROSE 50 ML IV SCH ×2 (07:27→17:36)
[2019-05-31 07:40] LABS: GLUCOMETER DEV NAME(LOC) 6S.1; GLUCOSE,POINT OF CARE 78 MG/DL (70-110)
[2019-05-31] MEDS: MetFORMIN HCL 500 MG TABLET PO SCH ×2 (08:00→17:36)
[2019-05-31] MEDS: DOCUSATE SODIUM 100 MG/10 ML LIQUID UDCUP JT SCH ×2 (09:52→20:04)
[2019-05-31] MEDS: SULFAMETHOX/TRIMETH DS 800-160 MG/TABLET PO SCH ×2 (09:52→20:04)
[2019-05-31] MEDS: FAMOTIDINE 10 MG/ML 2 ML VIAL IVP SCH (09:52)
[2019-05-31] MEDS: ASPIRIN 81 MG CHEWABLE TABLET JT SCH (09:53)
[2019-05-31] MEDS: PredniSONE 20 MG TABLET PO SCH (09:53)
[2019-05-31] MEDS: NYSTATIN 30 GM CREAM TP SCH ×2 (09:55→20:04)
[2019-05-31] MEDS: ESCITALOPRAM OXALATE 10 MG TABLET PO SCH (09:55)
[2019-05-31] MEDS: INSULIN REGULAR, HUMAN 100 UNITS/ML SQ PRN ×2 (17:36→20:26)
[2019-05-31] MEDS: FLUCONAZOLE 150 MG TABLET PO SCH (17:36)
[2019-05-31 18:39] LABS: GLUCOMETER DEV NAME(LOC) 6N.2; GLUCOSE,POINT OF CARE 147 MG/DL (70-110)
[2019-05-31 20:52] LABS: GLUCOMETER DEV NAME(LOC) 6S.1; GLUCOSE,POINT OF CARE 75 MG/DL (70-110)
[2019-05-31 20:52] LABS: GLUCOMETER DEV NAME(LOC) 6S.1; GLUCOSE,POINT OF CARE 144 MG/DL (70-110)
[2019-06-01] MEDS: ALBUTEROL SULFATE 2.5 MG/0.5 ML NEB SOLUTION NEB SCH ×4 (02:06→23:13)
[2019-06-01] MEDS: IPRATROPIUM BROMIDE 0.5 MG/2.5 ML NEB SOLUTION NEB SCH ×4 (02:06→23:13)
[2019-06-01 04:55] VITALS: BP 125/77
[2019-06-01] MEDS: CefoTEtan DISOD 2 GM/DEXTROSE 50 ML IV SCH ×2 (05:58→18:04)
[2019-06-01] MEDS: LEVOTHYROXINE SODIUM 88 MCG TABLET JT SCH (05:58)
[2019-06-01] MEDS: PANTOPRAZOLE SODIUM 40 MG DR TABLET PO SCH (05:58)
[2019-06-01 06:59] LABS: GLUCOMETER DEV NAME(LOC) 6N.2; GLUCOSE,POINT OF CARE 137 MG/DL (70-110)
[2019-06-01] MEDS: FLUCONAZOLE 150 MG TABLET PO SCH (08:01)
[2019-06-01] MEDS: FAMOTIDINE 10 MG/ML 2 ML VIAL IVP SCH (08:01)
[2019-06-01] MEDS: MetFORMIN HCL 500 MG TABLET PO SCH ×2 (08:01→18:03)
[2019-06-01] MEDS: SULFAMETHOX/TRIMETH DS 800-160 MG/TABLET PO SCH ×2 (08:01→20:44)
[2019-06-01] MEDS: DOCUSATE SODIUM 100 MG/10 ML LIQUID UDCUP JT SCH ×2 (08:02→20:44)
[2019-06-01] MEDS: PredniSONE 20 MG TABLET PO SCH (08:02)
[2019-06-01] MEDS: ASPIRIN 81 MG CHEWABLE TABLET JT SCH (08:02)
[2019-06-01] MEDS: NYSTATIN 30 GM CREAM TP SCH ×2 (08:03→20:45)
[2019-06-01 08:23] VITALS: BP 92/44
[2019-06-01 11:50] VITALS: BP 82/53
[2019-06-01] MEDS: INSULIN REGULAR, HUMAN 100 UNITS/ML SQ PRN ×2 (12:09→18:07)
[2019-06-01] MEDS: HEPARIN SODIUM,PORCINE 5,000 UNITS/ML VIAL SQ SCH ×2 (12:10→20:44)
[2019-06-01 17:19] VITALS: BP 113/70
[2019-06-01 21:00] VITALS: BP 133/70
[2019-06-01 23:40] VITALS: BP 116/57
[2019-06-02 00:15] LABS: GLUCOMETER DEV NAME(LOC) 6N.2; GLUCOSE,POINT OF CARE 111 MG/DL (70-110)
[2019-06-02] MEDS: ALBUTEROL SULFATE 2.5 MG/0.5 ML NEB SOLUTION NEB SCH ×3 (02:00→13:56)
[2019-06-02] MEDS: IPRATROPIUM BROMIDE 0.5 MG/2.5 ML NEB SOLUTION NEB SCH ×3 (02:00→13:56)
[2019-06-02 04:36] LABS: GLUCOMETER DEV NAME(LOC) 6S.1; GLUCOSE,POINT OF CARE 173 MG/DL (70-110)
[2019-06-02 04:59] VITALS: BP 132/79
[2019-06-02] MEDS: CefoTEtan DISOD 2 GM/DEXTROSE 50 ML IV SCH ×2 (06:23→17:25)
[2019-06-02] MEDS: LEVOTHYROXINE SODIUM 88 MCG TABLET JT SCH (06:24)
[2019-06-02] MEDS: PANTOPRAZOLE SODIUM 40 MG DR TABLET PO SCH (06:44)
[2019-06-02 06:51] LABS: GLUCOMETER DEV NAME(LOC) 6S.1; GLUCOSE,POINT OF CARE 114 MG/DL (70-110)
[2019-06-02 08:16] VITALS: BP 142/69
[2019-06-02] MEDS: PredniSONE 20 MG TABLET PO SCH (09:41)
[2019-06-02] MEDS: DOCUSATE SODIUM 100 MG/10 ML LIQUID UDCUP JT SCH (09:41)
[2019-06-02] MEDS: SULFAMETHOX/TRIMETH DS 800-160 MG/TABLET PO SCH (09:41)
[2019-06-02] MEDS: FAMOTIDINE 10 MG/ML 2 ML VIAL IVP SCH (09:42)
[2019-06-02] MEDS: HEPARIN SODIUM,PORCINE 5,000 UNITS/ML VIAL SQ SCH (09:42)
[2019-06-02] MEDS: ASPIRIN 81 MG CHEWABLE TABLET JT SCH (09:42)
[2019-06-02] MEDS: MetFORMIN HCL 500 MG TABLET PO SCH ×2 (09:42→17:25)
[2019-06-02] MEDS: FLUCONAZOLE 150 MG TABLET PO SCH (09:43)
[2019-06-02 11:09] VITALS: BP 133/80
[2019-06-02] MEDS: INSULIN REGULAR, HUMAN 100 UNITS/ML SQ PRN ×2 (11:31→18:01)
[2019-06-02 12:40] LABS: GLUCOMETER DEV NAME(LOC) 6N.1; GLUCOSE,POINT OF CARE 131 MG/DL (70-110)
[2019-06-02 16:12] VITALS: BP 107/60
[2019-06-02] MEDS: NYSTATIN 30 GM CREAM TP SCH (17:25)
[2019-06-03 06:08] LABS: GLUCOMETER DEV NAME(LOC) 4E.2; GLUCOSE,POINT OF CARE 184 MG/DL (70-110)
== END 2019-06-02 18:50 | DRG 871 ==
LOC: EMS 15:57 → 5N 21:47 → 6N 05-28 18:31 → 4E 06-02 06:42
PROVIDERS: ADMIT Internal Medicine; ATTEND Internal Medicine Geriatric Medicine
DX: A41.9 Sepsis, unspecified organism (principal); E43 Unspecified severe protein-calorie malnutrition; J69.0 Pneumonitis due to inhalation of food and vomit; K94.23 Gastrostomy malfunction; J44.1 Chronic obstructive pulmonary disease with (acute) exacerbation; J98.11 Atelectasis; I31.3 Pericardial effusion (noninflammatory); J44.0 Chronic obstructive pulmonary disease with (acute) lower respiratory infection; E03.9 Hypothyroidism, unspecified; Z99.81 Dependence on supplemental oxygen; M85.80 Other specified disorders of bone density and structure, unspecified site; R79.89 Other specified abnormal findings of blood chemistry; D64.9 Anemia, unspecified; E78.5 Hyperlipidemia, unspecified; E78.00 Pure hypercholesterolemia, unspecified; F32.9 Major depressive disorder, single episode, unspecified; R29.6 Repeated falls; N40.0 Benign prostatic hyperplasia without lower urinary tract symptoms; E86.0 Dehydration; K20.9 Esophagitis, unspecified; I10 Essential (primary) hypertension; H91.90 Unspecified hearing loss, unspecified ear; C76.0 Malignant neoplasm of head, face and neck; B95.62 Methicillin resistant Staphylococcus aureus infection as the cause of diseases classified elsewhere; L53.9 Erythematous condition, unspecified; R13.10 Dysphagia, unspecified; I48.91 Unspecified atrial fibrillation; E11.9 Type 2 diabetes mellitus without complications; M25.561 Pain in right knee; Z79.899 Other long term (current) drug therapy; Z68.23 Body mass index [BMI] 23.0-23.9, adult; Z92.3 Personal history of irradiation; Z85.89 Personal history of malignant neoplasm of other organs and systems; Z87.891 Personal history of nicotine dependence; Z86.19 Personal history of other infectious and parasitic diseases; Z22.330 Carrier of Group B streptococcus; Z98.49 Cataract extraction status, unspecified eye
CPT/HCPCS: 36600; 71275; 74018; 82805; 83036; 83605; 87040; 87070; 87205; 87804; 93005; 93306; 93970; 94640; 97110; 97116; 97162; 97166; 97530; 99291; J0692; J0696; J1644; J1815; J2543; J2920; J2930; J3370; J3490; J7030; J7050; J7060